=== PATIENT | female | born 1965 | race Caucasian/White ===

== ENCOUNTER → 2018-01-20 17:30 | Outpatient (CLI) | payer BC, SELFPAY ==
--- NOTE | 2018-01-20 17:20 | BI_ITS ---
MAMMOGRAPHY - BILATERAL SCREENING REASON FOR EXAM: Female, 52 years old. Routine annual screening examination. PERTINENT HISTORY: Non-contributory. History of prior bilateral breast reduction surgery. TECHNIQUE: Digital bilateral breast miranda (3D mammographic acquisition) in the CC and MLO projections. 2-D mediolateral oblique (MLO) and craniocaudad (CC) views of both breasts were obtained. CAD: Full Field Digital Mammography with Computer Added Detection was performed. COMPARISON: Comparison is made with prior study dated November 19, 2016 and May 06, 2015. FINDINGS: Breast Composition: There are scattered areas of fibroglandular density. There are no dominant masses or suspicious calcifications. Once again, there is asymmetry of breast tissue where more breast tissue is seen in the left breast as compared to the right side. This is unchanged. No other significant abnormalities are identified. There has been no significant change since the prior study. BI/SCREENING MAMM (CAD), BILAT IMPRESSION: Stable bilateral screening mammogram. Yearly follow-up mammogram recommended. (A) ASSESSMENT CATEGORY: BIRADS Category 2: Benign. A letter regarding these results will be sent to the patient by the facility within 30 days. Approximately 10% of breast cancers are not detected by mammography. A normal mammogram should not delay biopsy of a clinically suspicious abnormality. [id number] Electronically Signed: Jori Berry MD at 10:28 EDT Tel [phone], Service support ,
== END ==
PROVIDERS: Family Provider Internal Medicine; PCP Internal Medicine; Visit Provider Internal Medicine
DX: Z12.31 Encounter for screening mammogram for malignant neoplasm of breast (principal)
CPT/HCPCS: 77063; 77067

== ENCOUNTER → 2019-02-08 | Outpatient (CLI) | payer BC, SELFPAY ==
--- NOTE | 2019-02-07 17:03 | BI_ITS ---
MAMMOGRAPHY - BILATERAL SCREENING REASON FOR EXAM: Female, 53 years old. Routine annual screening examination. PERTINENT HISTORY: Non-contributory. Bilateral breast reduction surgery. TECHNIQUE: Digital bilateral breast tno (3D mammographic acquisition) in the CC and MLO projections. 2-D mediolateral oblique (MLO) and craniocaudad (CC) views of both breasts were obtained. CAD: Full Field Digital Mammography with Computer Added Detection was performed. COMPARISON: Comparison is made with prior study dated January 20, 2018 and November 19, 2016. FINDINGS: Breast Composition: There are scattered areas of fibroglandular density. There are no dominant masses or suspicious calcifications. Once again, stable asymmetry of breast tissue where more breast tissue is seen in the left breast as compared to the right. No other significant abnormalities are identified. There has been no significant change since the prior study. BI/SCREEN MAMM (CAD) W/TON BILAT IMPRESSION: Stable bilateral screening mammogram. Yearly follow-up mammogram recommended. (A) ASSESSMENT CATEGORY: BIRADS Category 2: Benign. A letter regarding these results will be sent to the patient by the facility within 30 days. Approximately 10% of breast cancers are not detected by mammography. A normal mammogram should not delay biopsy of a clinically suspicious abnormality. [id number] Electronically Signed: Jori Berry, at 9:11 EDT , Service support ,
== END | disposition home or self-care (01) ==
PROVIDERS: Family Provider Internal Medicine; PCP Internal Medicine; Referring Provider Internal Medicine; Visit Provider Internal Medicine
DX: Z12.31 Encounter for screening mammogram for malignant neoplasm of breast (principal)
CPT/HCPCS: 77063; 77067

== ENCOUNTER → 2020-02-29 16:06 | Outpatient (CLI) | payer BC, SELFPAY ==
--- NOTE | 2020-02-29 16:08 | BI_ITS ---
MAMMOGRAPHY - BILATERAL SCREENING REASON FOR EXAM: Female, 54 years old. Routine annual screening examination. PERTINENT HISTORY: Non-contributory. TECHNIQUE: Digital bilateral breast ton (3D mammographic acquisition) in the CC and MLO projections. 2-D mediolateral oblique (MLO) and craniocaudad (CC) views of both breasts were obtained. CAD: Full Field Digital Mammography with Computer Added Detection was performed. COMPARISON: Comparison is made with prior study dated February 07, 2019. FINDINGS: Breast Composition: There are scattered areas of fibroglandular density. There are no dominant masses or suspicious calcifications. Once again, there is a stable asymmetry of breast tissue, more breast tissue is seen in the left breast as compared to the right side. No other significant abnormalities are identified. There has been no significant change since the prior study. BI/SCREEN MAMM (CAD) W/TON BILAT IMPRESSION: Stable bilateral screening mammogram. Yearly follow-up mammogram recommended. (A) ASSESSMENT CATEGORY: BIRADS Category 2: Benign. A letter regarding these results will be sent to the patient by the facility within 30 days. Approximately 10% of breast cancers are not detected by mammography. A normal mammogram should not delay biopsy of a clinically suspicious abnormality. [id number] Electronically Signed: Jori Berry, at 8:17 EDT , Service support ,
== END ==
PROVIDERS: PCP Internal Medicine; Referring Provider Internal Medicine; Visit Provider Internal Medicine
DX: Z12.31 Encounter for screening mammogram for malignant neoplasm of breast (principal)
CPT/HCPCS: 77063; 77067

== ENCOUNTER → 2022-01-08 | Outpatient (CLI) | payer BC, SELFPAY ==
--- NOTE | 2022-01-08 15:57 | BI_ITS ---
MAMMOGRAPHY - BILATERAL SCREENING REASON FOR EXAM: Female, 56 years old. Routine annual screening examination. PERTINENT HISTORY: Non-contributory. History of prior bilateral breast reduction surgery. TECHNIQUE: Digital bilateral breast ton (3D mammographic acquisition) in the CC and MLO projections. 2-D mediolateral oblique (MLO) and craniocaudad (CC) views of both breasts were obtained. CAD: Full Field Digital Mammography with Computer Added Detection was performed. COMPARISON: Comparison is made with prior study dated 02/29/2020 and 02/07/2019. FINDINGS: Breast Composition: There are scattered areas of fibroglandular density. There are no dominant masses or suspicious calcifications. Stable asymmetry of breast tissue were more breast tissue is seen in the retroareolar region of the left breast as compared to the right side. No other significant abnormalities are identified. There has been no significant change since the prior study. BI/SCRN MAMM (CAD)W/TON BILAT IMPRESSION: Stable bilateral screening mammogram. Yearly follow-up mammogram recommended. (A) ASSESSMENT CATEGORY: BIRADS Category 2: Benign. A letter regarding these results will be sent to the patient by the facility within 30 days. Approximately 10% of breast cancers are not detected by mammography. A normal mammogram should not delay biopsy of a clinically suspicious abnormality. [id number] Electronically Signed: Jori Berry MD at 8:22 EDT ,
[2022-01-08 16:44] LABS: Microalbumin,Random Urine 6.1 mg/L (NO RANGE EST.)
[2022-01-08 17:52] LABS: Absolute Neutrophil Count 9.6 X10^3/uL (2.0-7.7); Basophil% 0.8 % (0-1); Eosinophil# 0.37 X10^3/uL; Eosinophils% 2.8 % (0-5); Hematocrit 46.5 % (37-47); Lymphocyte % 17.4 % (19-41); Mean Corp Hgb Conc 32.3 g/dL (32-36); Mean Corpuscular Hgb 28.7 pg (27.0-32.0); Mean Corpuscular Volume 89.1 fL (81-99); Mean Platelet Vol. 10.4 fl (6.2-12.0); Monocyte# 0.71 X10^3/uL; Monocyte% 5.4 % (0-10); NRBC Flagged by Analyzer 0 % (0-5); Neutrophil # 9.59 X10^3/uL (2.7-7.7); Neutrophil % 72.5 % (47-70); Platelet Count 275 K/mm3 (150-450); RBC Distribution Width CV 13.2 % (11.6-14.6); Red Blood Count 5.22 M/mm3 (4.2-5.4); White Blood Count 13.2 K/mm3 (4.4-11.0)
[2022-01-08 18:18] LABS: Vitamin D,25 Hydroxy 22.4 ng/mL
[2022-01-08 18:27] LABS: AST(SGOT) 35 U/L (15-37); Alanine Aminotransfer ALT/SGPT 76 U/L (13-56); Albumin, Serum 3.7 g/dL (3.2-5.0); Alkaline Phosphatase 101 U/L (45-117); Anion Gap 10 (5-15); BUN 13 mg/dL (7-18); BUN/Creat Ratio 17.9 RATIO (10-20); Calcium,Total 9.5 mg/dL (8.5-10.1); Chloride 104 mmol/L (98-107); Cholesterol 178 mg/dL (200); Creatinine, Serum 0.72 mg/dL (0.55-1.02); EST Glomerular Filtration Rate 88 mL/min (>60); Est Glom Filt Rate - Afr Amer 106 mL/min (>60); Globulin 3.8 g/dL (2.2-4.2); Glucose 114 mg/dL (74-106); High Density Lipoprotein 53 mg/dL; Potassium 3.9 mmol/L (3.5-5.1); Protein, Total 7.5 g/dL (6.4-8.2); Sodium Level 138 mmol/L (136-145); Thyroid Stim Hormone (TSH) 2.71 uIU/mL (0.358-3.74); Triglycerides 107 mg/dL; Very Low Density Lipoprotein 21 mg/dL (5-40)
== END | disposition home or self-care (01) ==
LOC: OPBI 15:56
PROVIDERS: PCP Internal Medicine; Referring Provider Internal Medicine; Visit Provider Internal Medicine
DX: Z12.31 Encounter for screening mammogram for malignant neoplasm of breast (principal); E11.9 Type 2 diabetes mellitus without complications; E55.9 Vitamin D deficiency, unspecified; E78.5 Hyperlipidemia, unspecified
CPT/HCPCS: 36415; 77063; 77067; 80053; 80061; 82043; 82306; 82570; 84443; 85025

== ENCOUNTER → 2022-12-10 | Outpatient (CLI) | payer BC, SELFPAY ==
--- NOTE | 2022-12-10 15:20 | VDLE_ITS ---
Reason For Study: Calf swelling Procedure LEFT This is a venous duplex using B-mode, color GSV is normal. flow and spectral Doppler. CFV is compressible, spontaneous, phasic, Exam performed in department. competent, and demonstrates normal The study was technically limited. augmentation. The study was technically difficult. FV is compressible, spontaneous, phasic, A preliminary report was called and/or faxed competent and demonstrates normal to Dr. Macedo. augmentation. POP V is compressible, spontaneous, phasic, competent and demonstrates normal augmentation. T/P Trunk is compressible. Calf veins not well visualized due to pt body habitus and edema. VL/Venous Duplex US, Unilateral Interpretation Summary There is no evidence of left lower extremity deep vein thrombosis. Left great s aphenous vein appears patent and compressible segmentally. Technically difficult examination. It is o f note that the calf veins on the left were poorly visualized secondary to body habitus and edema. Ordering Physician: Nancy Macedo Referring Physician: Nancy Macedo Performed By: Linda Thomas RVT
== END | disposition home or self-care (01) ==
LOC: CVS 15:19
PROVIDERS: PCP Internal Medicine; Referring Provider Internal Medicine; Visit Provider Internal Medicine
DX: M79.89 Other specified soft tissue disorders (principal)
CPT/HCPCS: 93971

== ENCOUNTER 2022-12-16 07:44 | Outpatient (RCR) | payer BC, SELFPAY ==
[2022-12-16 08:09] VITALS: BP 175/82; PULSE 86; RESP 16; TEMP 36.3; BMI 59.1
--- NOTE | 2022-12-16 10:03 | HP.PCM_ITS ---
History of Present Illness Date of Service: 12/16/22 Chief Complaint: Follow-up on left lower leg cellulitis and lymphedema History of Wound: 57-year-old white female that is overweight obese. 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 Has developed some cellulitis in the left lower leg which appears to be larger than the right leg. She also is forming some hyperkeratosis probably from using Neosporin ointment on her open wounds. Lymphedema is pretty bad we will start her on wraps this week [facility] Home Medications albuterol sulfate 90 mcg/actuation aerosol inhaler (ProAir HFA) 2 puff inhalation Q4H PRN Wheezing 12/16/22 [History Last Taken Unknown] aspirin 81 mg capsule 81 mg PO DAILY 12/16/22 [History Last Taken Unknown] citalopram 20 mg tablet 20 mg PO DAILY 12/16/22 [History Last Taken Unknown] melatonin 12 mg tablet 10 mg PO QHS PRN Insomnia 12/16/22 [History Last Taken Unknown] naproxen 500 mg tablet 500 mg PO DAILY PAIN 12/16/22 [History Last Taken Unknown] spironolactone 50 mg tablet 50 mg PO DAILY 12/16/22 [History Last Taken Unknown] Allergy/AdvReac Type Severity Reaction Status Date / Time amoxicillin Allergy Rash Verified 08/05/15 11:16 fluoxetine [From Prozac] AdvReac Other Verified 12/16/22 08:36 Social History Smoking Status: Never smoker ROS Constitutional Constitutional: Reports systems reviewed and no addt'l complaints, except as documented Cardiovascular Cardiovascular: Reports systems reviewed and no addt'l complaints, except as documented Respiratory/Chest Respiratory/Chest: Reports systems reviewed and no addt'l complaints, except as documented Gastrointestinal Gastrointestinal: Reports systems reviewed and no addt'l complaints, except as documented Genitourinary Genitourinary: Reports systems reviewed and no addt'l complaints, except as documented Musculoskeletal Musculoskeletal: Reports systems reviewed and no addt'l complaints, except as documented Integumentary Integumentary: Reports wounds and other Details: Left lower leg swelling medial aspect of left ankle looks more venous opened and hyperkeratosis very erythematous. Neurologic Neurologic: Reports systems reviewed and no addt'l complaints, except as documented Psychiatric Psychiatric: Reports systems reviewed and no addt'l complaints, except as documented Endocrine Endocrinology: Reports systems reviewed and no addt'l complaints, except as documented Hematologic/Lymphatic Hematologic/Lymphatic: Reports systems reviewed and no addt'l complaints, except as documented Allergic/Immunologic Allergic/Immunologic: Reports systems reviewed and no addt'l complaints, except as documented Vital Signs Vital Signs Vital Signs: 12/16/22 08:09 Temperature 97.4 F L Temperature Source Temporal Pulse Rate 86 Respiratory Rate 16 Blood Pressure 175/82 H Blood Pressure Mean 113 Blood Pressure Source Monitor Blood Pressure Position Sitting Blood Pressure Location Left Arm Oxygen Delivery Method Room Air Weight Weight: 366 lb Body Mass Index (BMI) 59.1 Physical Exam Const oriented x3 General Appearance: cooperative Exam Limitations: no limitations HEENT normocephalic Eyes PERRL Pupil: PERRL Neck full ROM Resp normal respiratory effort and clear to auscultation bilaterally Effort and Inspection: able to speak in complete sentences Auscultation: clear to auscultation bilaterally Cardio regular rate and regular rhythm Palpation: normal PMI Rate: regular rate Rhythm: regular rhythm GI Auscultation: normoactive bowel sounds Palpation: soft Extremity General Extremity: normal exam except as noted and other findings Other Details: Lymphedema to bilateral lower legs left leg more swollen than right. Open area on left medial aspect of ankle bumpy and uneven edges looks more vascular Skin no rashes or lesions noted Neuro oriented x3 Psych Appearance: grossly normal Speech: normal speech Thought Content: normal thought content Judgement: judgement good Debridement Note Debridement Note Post-Debridement Measurements and Additional Note: Post-Debridement Measurements/Treatment WC - Nurse 1 - General Ulcer Assessment Start: 12/16/22 08:09 Freq: Status: Active Protocol: WC.LOWEXT Activity Type Activity Date Activity User E-sign Co-sign Detail Recorded Client Recorded Date Recorded By Document 12/16/22 08:09 BMF [id number] 12/16/22 08:32 BMF Edit Result 12/16/22 08:09 BMF (1) [id number] 12/16/22 08:41 BMF (1) Pulse Rate (60-100) => 86 Pulse Location => Monitor Blood Pressure (90/60-120/80) => 175/82 H Blood Pressure Mean => 113 12/16/22 08:09 WC - Today's Visit Information Type of service Follow-up Visit (Physician/REHABILITATION SERVICES AIDE ) Arrival Mode Ambulatory Transfer Assistance None Patient Identification Verified (Name & Yes ) Patient Requires Transmission-Based No Precautions Height and Weight Height 5 ft 6 in Weight 366 lb Weight in Pounds 366.0 lbs Body Mass Index (BMI) 59.1 BMI Classification Obese BSA - Patrick 2.59 Vital Signs Temperature (97.8 F-99.1 F) 97.4 F L Temperature Source Temporal Pulse Rate (60-100) 86 Pulse Location Monitor Respiratory Rate (12-18) 16 Respiratory rate source Observation Oxygen Delivery Method Room Air Blood Pressure (90/60-120/80) 175/82 H Blood Pressure Mean 113 Source Monitor Position Sitting Blood Pressure Location Left Arm History Since Last Visit- (Skip if this is Patient's initial visit) Left Footwear Regular Shoe Right Footwear Regular Shoe Pain Scale: 0-10 Numeric Is Patient Pain Free? Yes Lower Extremity Assessment/ Foot Assessment/ Toe Nail Assessment Right -Posterior Tibial Palpable No -Posterior Tibial Doppler Inaudible -Dorsalis Pedis Palpable No -Dorsalis Pedis Doppler Inaudible -Extremity Color Pale -Hair Growth on Legs Yes -Hair Growth on Toes Yes -Temperature of Extremity Cool -Capillary Refill Less than 3 Seconds -Other Deformity No -Prior Foot Ulcer No -Charcot Joint No -Prior Amputation No -Thick No -Discolored No -Deformed No -Improper Length & Hygeine No Left -Lower Extremity Comment (If N/A Above LYMPHATIC LEG/ ) FOOT. DIFFICULT TO ASSESS PULSES -Posterior Tibial Palpable No -Dorsalis Pedis Palpable Yes -Dorsalis Pedis Doppler Multiphasic -Extremity Color Pale -Hair Growth on Legs Yes -Hair Growth on Toes Yes -Temperature of Extremity Cool -Capillary Refill Less than 3 Seconds -Other Deformity No -Prior Foot Ulcer No -Charcot Joint No -Prior Amputation No -Thick No -Discolored No -Deformed No -Improper Length & Hygeine No Neuropathy Assessment Feet - Top Side and Bottom <Entered> (a) Communication Assessment Preferred language [place] Premium Auditor Required No Able to Read Yes Able to Write Yes Communication Tools None Right Hearing Abillity Normal Left Hearing Abillity Normal Visual Assistive Devices None Teaching Assessment Preferences Verbal,Written, Audio/Visual, Demonstration Barriers to Learning None Readiness To Learn Excellent Willingness to Engage in Self Management High Activies Readiness to Engage in Self Management High Activities Anxiety Level Calm Cooperation Cooperative Perception Coherent Interest in Health Problem Asks Questions Education Importance Acknowledges Need Does Patient Smoke tobacco or other No substances Smoking Status Never smoker Is Patient Diabetic Yes Functional Assessment Recent Decline in Ability to Perform Denies Any Declines 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 Cultural/Yarsani Needs that may affect No Treatment Plan Teaching: Wound Center *Welcome to the Wound Center -Person Taught Patient -Teaching Method Discussion -Response to teaching Verbalize understanding Welcome to the Wound Care Center [place] (a) 1 - - 2 - - 3 - - 4 - + 5 - + 6 - + 7 - + SHIV - Nurse 1 - General Ulcer Measurement Start: 12/16/22 08:09 Freq: Status: Active Protocol: Activity Type Activity Date Activity User E-sign Co-sign Detail Recorded Client Recorded Date Recorded By Document 12/16/22 08:09 [facility] [id number] 12/16/22 08:32 [facility] 12/16/22 08:09 Wound Center Nurse 1 #1- L POST LE -Combined with other wound No -Current Size (cm) - Length 14.8 -Current Size (cm) - Width 22.5 -Current Size (cm) - Depth 0.1 -Total Square Cm 333.00 -Date of Last Picture (Recall this 12/16/22 field) -Photo Taken Yes -Epithelialization None Present -Tunneling No -Undermining/Tunneling No -Circular Undermining No -Exudate Amt Large -Exudate Type Serosanguineous -Wound Margin Distinct, Outline Attached -Granulation Amt Medium (34-66%) -Granulation Quality Red -Slough/Fibrin Yes -Necrosis Amt Medium (34-66%) -Necrotic Tissue Type Adherent Slough -Texture (Roberta-wound Skin Appearance) Assessed, Scarring -Moisture (Roberta-wound Skin Appearance) Assessed -Color (Roberta-wound Skin Appearance) Assessed -Temperature (Roberta-wound Skin No Abnormality Appearance) (Pt Warm) -Tenderness on Palpation (Roberta-wound No Skin Appearance) -Ulcer Cleansing Soap and Water -Foul Odor after Cleansing No -Anesthetic Used 4% Lidocaine Solution Lower Limb Edema Present Yes Right Calf (cm) 62.2 Right Ankle (cm) 37.8 Left Calf (cm) 69 Left Ankle (cm) 40.2 - Nurse 2 - General Ulcer CM Notes Start: 12/16/22 08:09 Freq: Status: Active Protocol: Activity Type Activity Date Activity User E-sign Co-sign Detail Recorded Client Recorded Date Recorded By Document 12/16/22 08:52 MW [id number] 12/16/22 08:57 MW 12/16/22 08:52 Wound Center Nurse 2 #1- L POST LE -Time 08:53 -Correct Patient Yes -Correct Side, Site, Position Yes -Correct Procedure Yes -Procedure Performed Yes -Type of Procedure Debridement -Clinical Debridement Subcutaneous -Tissue Removed Subcutaneous -Post Debridement (cm) - Length 14.8 -Post Debridement (cm) - Width 22.5 -Post Debridement (cm) - Depth 0.1 -Total Square (Post) (cm) 333.00 -Area of Debridement (cm) - Length 14.8 -Area of Debridement (cm) - Width 22.5 -Total Square (Area) (cm) 333.00 -Tunneling No -Undermining/Tunneling No -Circular Undermining No -Wound/Ulcer Outcome Not Healed -Ulcer Cleansing Rinsed/ Irrigated with Saline -Foul Odor after Cleansing No -Bioengineered Tissue No -Bleeding Controlled with Pressure -Treatment Response Procedure Tolerated Well -Offloading No -Debridement - Subq, 1st 20sq cm Yes Pain Scale: 0-10 Numeric Is Patient Pain Free? Yes - Nurse 3 - General Ulcer D/C NN Start: 12/16/22 08:09 Freq: Status: Active Protocol: Activity Type Activity Date Activity User E-sign Co-sign Detail Recorded Client Recorded Date Recorded By Document 12/16/22 09:23 [facility] [id number] 12/16/22 09:24 [facility] 12/16/22 09:23 Wound Care Center Nurse 3 #1- L POST LE -Ulcer Cleansing Soap and Water -Foul Odor after Cleansing No -Primary Dressing Applied NonAdherent Contact Layer -Other Dressing XEROFORM, ADAPTIC -Primary Dressing Covered/Secured with Dry Gauze & Roll Gauze, Secured with Tape -Other Covering ABD PADS BLE -Compression Wrap Vicente Wrap Treatment Response Procedure Tolerated Well Pain Scale: 0-10 Numeric Is Patient Pain Free? Yes - Visit Discharge Discharge Condition Stable Ambulatory Status Ambulatory Transportation Private Auto Assessment/Plan Assessment/Plan (1) Lymphedema: CODE(S): I89.0 - Lymphedema, not elsewhere classified (2) Peripheral vascular disease: CODE(S): I73.9 - Peripheral vascular disease, unspecified (3) Peripheral vascular disease of lower extremity with ulceration: CODE(S): I73.9 - Peripheral vascular disease, unspecified; L97.909 - Non- pressure chronic ulcer of unspecified part of unspecified lower leg with unspecified severity PLAN: Wash left lower leg with antibacterial soap pat dry Apply Xeroform dressing with Adaptic over top then Mathew Apply a 4 inch Vicente to foot to ankle and then a 6 inch from ankle to knee. Every day may do both legs Follow-up in 1 week
== END 2022-12-20 23:59 | disposition home or self-care (01) ==
LOC: WC 07:44
PROVIDERS: PCP Internal Medicine; Referring Provider Internal Medicine; Visit Provider Nurse Practitioner
DX: L03.116 Cellulitis of left lower limb (principal); L97.909 Non-pressure chronic ulcer of unspecified part of unspecified lower leg with unspecified severity; I73.9 Peripheral vascular disease, unspecified; Z68.43 Body mass index [BMI] 50.0-59.9, adult; I89.0 Lymphedema, not elsewhere classified; E66.9 Obesity, unspecified; Z79.82 Long term (current) use of aspirin; Z79.899 Other long term (current) drug therapy
CPT/HCPCS: 11042; 11045; 87070; 87075; 87077; 87186; 87205; 99203; G0463

== ENCOUNTER 2023-01-20 08:00 | Outpatient (RCR) | payer BC, SELFPAY ==
[2022-12-21 00:53] VITALS: BP 175/82; PULSE 86; RESP 16; TEMP 36.3; BMI 59.1
[2022-12-23 08:26] VITALS: BP 188/83; PULSE 89; RESP 18; TEMP 36.1; BMI 59.1
--- NOTE | 2022-12-23 09:38 | PCM.WC.PN ---
History of Present Illness Date of Service: 12/23/22 Chief Complaint: Follow-up on left lower leg cellulitis and lymphedema History of Wound: 57-year-old white female that is overweight obese. 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 Has developed some cellulitis in the left lower leg which appears to be larger than the right leg. She also is forming some hyperkeratosis probably from using Neosporin ointment on her open wounds. Lymphedema is pretty bad we will start her on wraps this week Progress of Wound: Area is much smaller she is tolerating the Vicente wraps. Patient states her leg is going down. We will offer her pumps for lymphedema that she can start applying during the day twice a day for 30 minutes. The posterior leg areas are smaller she still has some raised skin and she has not started her new antibiotic yet but will start the Cipro twice a day. Subjective Subjective Patient states she is having difficulty getting the Vicente wrap sign she might need to get a family member in there to help her. Otherwise she is pleased with the outcome so far Objective Data Objective Data So measurements of the wounds are smaller her circumferences less than it was last week wearing Vicente wraps. Vital Signs: Vital Signs Temp Pulse Resp BP 97 F L 89 18 188/83 H 12/23/22 08:26 12/23/22 08:26 12/23/22 08:26 12/23/22 08:26 Weight: 366 lb Body Mass Index (BMI) 59.1 Lab / Micro Data Attestation: I reviewed the patient's lab results. Physical Exam Const oriented x3 General Appearance: cooperative Exam Limitations: no limitations HEENT normocephalic Eyes PERRL Pupil: PERRL Neck full ROM Resp normal respiratory effort and clear to auscultation bilaterally Effort and Inspection: able to speak in complete sentences Auscultation: clear to auscultation bilaterally Cardio regular rate and regular rhythm Palpation: normal PMI Rate: regular rate Rhythm: regular rhythm GI Auscultation: normoactive bowel sounds Palpation: soft Extremity General Extremity: normal exam except as noted and other findings Other Details: Lymphedema to bilateral lower legs left leg more swollen than right. Open area on left medial aspect of ankle bumpy and uneven edges looks more vascular Skin no rashes or lesions noted Neuro oriented x3 Psych Appearance: grossly normal Speech: normal speech Thought Content: normal thought content Judgement: judgement good Debridement Note Debridement Note Wound debrided: Left lower leg posterior Type of Debridement: Excisional debridement Anesthesia Used: 5% Lidocaine Gel Depth: Down to and including healthy tissue and in the subcutaneous layer Percentage of wound debrided: 100 Instrument Used: 5mm curette Tissue Removed: Fibrin and some slough Severity: Fat Layer Exposed Amount of bleeding with debridement: Mild Bleeding Controlled with: Compression and gauze Patient tolerated procedure: Patient tolerated procedure well Post-Debridement Measurements and Additional Note: Post-Debridement Measurements/Treatment - Nurse 1 - General Ulcer Assessment Start: 12/23/22 08:26 Freq: Status: Active Protocol: KACI Activity Type Activity Date Activity User E-sign Co-sign Detail Recorded Client Recorded Date Recorded By Document 12/23/22 08:26 EMMIE [id number] 12/23/22 08:28 EMMIE 12/23/22 08:26 WC - Today's Visit Information Type of service 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 ) Arrival Mode Ambulatory Transfer Assistance None Patient Identification Verified (Name & Yes ) Patient Requires Transmission-Based No Precautions Height and Weight Body Mass Index (BMI) 59.1 BMI Classification Obese Vital Signs Temperature (97.8 F-99.1 F) 97 F L Temperature Source Temporal Pulse Rate (60-100) 89 Pulse Location Monitor Respiratory Rate (12-18) 18 Respiratory rate source Observation Blood Pressure (90/60-120/80) 188/83 H Blood Pressure Mean (mm Hg) 118 Position Semi-Fowlers Blood Pressure Location Left Arm History Since Last Visit- (Skip if this is Patient's initial visit) Have you changed medications since your No last visit? Any new allergies or adverse reactions No Had a fall/change in ADL's that may No increase risk of falls Signs or symptoms of abuse and/or No neglect since last visit Have you been in the hospital since your No last visit? Has dressing in place as prescribed Yes Has compression in place as prescribed Yes Has offloadiing in place as prescribed No Experienced any changes in pain level or No management Pain Scale: 0-10 Numeric Is Patient Pain Free? Yes SHIV Melton Nurse 1 - General Ulcer Measurement Start: 12/23/22 08:26 Freq: Status: Active Protocol: Activity Type Activity Date Activity User E-sign Co-sign Detail Recorded Client Recorded Date Recorded By Document 12/23/22 08:26 RB [id number] 12/23/22 08:28 RB 12/23/22 08:26 Wound Center Nurse 1 #1- L POST LE -Combined with other wound No -Current Size (cm) - Length 11 -Current Size (cm) - Width 3.7 -Current Size (cm) - Depth 0.1 -Total Square Cm 40.7 -Tunneling No -Undermining/Tunneling No -Circular Undermining No -Granulation Amt Medium (34-66%) -Granulation Quality [place] -Slough/Fibrin Yes -Necrosis Amt Medium (34-66%) -Necrotic Tissue Type Adherent Slough -Structure Exposed N/A -Texture (Roberta-wound Skin Appearance) Assessed, Excoriation, Localized Edema -Moisture (Roberta-wound Skin Appearance) Assessed -Color (Roberta-wound Skin Appearance) Assessed -Temperature (Roberta-wound Skin No Abnormality Appearance) (Pt Warm) -Tenderness on Palpation (Roberta-wound No Skin Appearance) -Ulcer Cleansing Wound Cleanser -Foul Odor after Cleansing No -Anesthetic Used 5% Lidocaine Gel Lower Limb Edema Present Yes Left Calf (cm) 68 Left Ankle (cm) 41 WC - Nurse 2 - General Ulcer CM Notes Start: 12/23/22 08:26 Freq: Status: Active Protocol: Activity Type Activity Date Activity User E-sign Co-sign Detail Recorded Client Recorded Date Recorded By Document 12/23/22 08:39 MW [id number] 12/23/22 08:44 MW 12/23/22 08:39 Wound Center Nurse 2 #1- L POST LE -Time 08:40 -Correct Patient Yes -Correct Side, Site, Position Yes -Correct Procedure Yes -Procedure Performed Yes -Type of Procedure Debridement -Clinical Debridement Subcutaneous -Tissue Removed Subcutaneous -Post Debridement (cm) - Length 12.0 -Post Debridement (cm) - Width 15.0 -Post Debridement (cm) - Depth 0.1 -Total Square (Post) (cm) 180.00 -Area of Debridement (cm) - Length 12.0 -Area of Debridement (cm) - Width 15.0 -Total Square (Area) (cm) 180.00 -Tunneling No -Undermining/Tunneling No -Circular Undermining No -Wound/Ulcer Outcome Not Healed -Ulcer Cleansing Rinsed/ Irrigated with Saline -Foul Odor after Cleansing No -Bioengineered Tissue No -Bleeding Controlled with Pressure -Treatment Response Procedure Tolerated Well -Offloading No -Debridement - Subq, 1st 20sq cm Yes -Debridement, SubQ, ea addt'l 20sq cm 9 or part thereof Pain Scale: 0-10 Numeric Is Patient Pain Free? Yes - Nurse 3 - General Ulcer D/C NN Start: 12/23/22 08:26 Freq: Status: Active Protocol: Activity Type Activity Date Activity User E-sign Co-sign Detail Recorded Client Recorded Date Recorded By Document 12/23/22 08:51 [facility] [id number] 12/23/22 08:52 [facility] 12/23/22 08:51 Wound Care Center Nurse 3 #1- L POST LE -Ulcer Cleansing Rinsed/ Irrigated with Saline -Foul Odor after Cleansing No -Primary Dressing Applied NonAdherent Contact Layer -Other Dressing abd -Primary Dressing Covered/Secured with Dry Gauze & Roll Gauze, Secured with Tape -Other Covering drsg per rb rn ble -Compression Wrap Vicente Wrap Treatment Response Procedure Tolerated Well Pain Scale: 0-10 Numeric Is Patient Pain Free? Yes WC - Visit Discharge Discharge Condition Stable Ambulatory Status Ambulatory Transportation Private Auto Assessment/Plan Assessment/Plan (1) Lymphedema: CODE(S): I89.0 - Lymphedema, not elsewhere classified (2) Peripheral vascular disease: CODE(S): I73.9 - Peripheral vascular disease, unspecified (3) Peripheral vascular disease of lower extremity with ulceration: CODE(S): I73.9 - Peripheral vascular disease, unspecified; L97.909 - Non-pressure chronic ulcer of unspecified part of unspecified lower leg with unspecified severity PLAN: Wash left lower leg with antibacterial soap pat dry Apply Xeroform dressing with Adaptic over top then Mathew Apply a 4 inch Vicente to foot to ankle and then a 6 inch from ankle to knee. Every day may do both legs Will apply for lymphedema pumps Follow-up in 1 week
[2022-12-30 08:13] VITALS: BP 179/93; PULSE 85; RESP 16; TEMP 36.6; BMI 59.1
--- NOTE | 2022-12-30 09:32 | PCM.WC.PN ---
History of Present Illness Date of Service: 12/30/22 Chief Complaint: Follow-up on left lower leg cellulitis and lymphedema History of Wound: 57-year-old white female that is overweight obese. 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 Has developed some cellulitis in the left lower leg which appears to be larger than the right leg. She also is forming some hyperkeratosis probably from using Neosporin ointment on her open wounds. Lymphedema is pretty bad we will start her on wraps this week Progress of Wound: Area is much smaller she is tolerating the Vicente wraps. Patient states her leg is going down. We will offer her pumps for lymphedema that she can start applying during the day twice a day for 30 minutes. The posterior leg areas are smaller she still has some raised skin and she has not started her new antibiotic yet but will start the Cipro twice a day. Subjective Subjective Patient has to get back to the distributor about her pumps they did not contact her though. Patient is pleased with outcomes and she feels like she is if they are getting smaller. Patient needs FMLA papers filled out because of her absenteeism. Objective Data Objective Data FMLA papers were signed. Patient is still on antibiotic therapy. Still has open areas on the back of her left lower leg much smaller. No sign of circumferential. Patient's legs are still very edematous anxious for her to get on the pumps with the Vicente wrap son. Vital Signs: Vital Signs Temp Pulse Resp BP O2 Del Method 98 F 85 16 179/93 H Room Air 12/30/22 08:13 12/30/22 08:13 12/30/22 08:13 12/30/22 08:13 12/30/22 08:13 Oxygen Delivery Method Room Air Weight: 366 lb Body Mass Index (BMI) 59.1 Lab / Micro Data Attestation: I reviewed the patient's lab results. Physical Exam Const oriented x3 General Appearance: cooperative Exam Limitations: no limitations HEENT normocephalic Eyes PERRL Pupil: PERRL Neck full ROM Resp normal respiratory effort and clear to auscultation bilaterally Effort and Inspection: able to speak in complete sentences Auscultation: clear to auscultation bilaterally Cardio regular rate and regular rhythm Palpation: normal PMI Rate: regular rate Rhythm: regular rhythm GI Auscultation: normoactive bowel sounds Palpation: soft Extremity General Extremity: normal exam except as noted and other findings Other Details: Lymphedema to bilateral lower legs left leg more swollen than right. Open area on left medial aspect of ankle bumpy and uneven edges looks more vascular Skin no rashes or lesions noted Neuro oriented x3 Psych Appearance: grossly normal Speech: normal speech Thought Content: normal thought content Judgement: judgement good Debridement Note Debridement Note Wound debrided: Left lower leg cellulitis and open wounds Type of Debridement: Excisional debridement Anesthesia Used: 5% Lidocaine Gel Depth: Down to and including healthy tissue Percentage of wound debrided: 100 Instrument Used: 5mm curette Tissue Removed: Fibrin and devitalized tissue Severity: Limited To Skin Breakdown Amount of bleeding with debridement: None Bleeding Controlled with: Compression and gauze Patient tolerated procedure: Patient tolerated procedure well Post-Debridement Measurements and Additional Note: Post-Debridement Measurements/Treatment - Nurse 1 - General Ulcer Assessment Start: 12/23/22 08:26 Freq: Status: Active Protocol: KACI Activity Type Activity Date Activity User E-sign Co-sign Detail Recorded Client Recorded Date Recorded By Document 12/23/22 08:26 [id number] 12/23/22 08:28 RB Document 12/30/22 08:13 [facility] [id number] 12/30/22 08:22 [facility] 12/23/22 12/30/22 08:26 08:13 - Today's Visit Information Type of service Follow-up Visit Follow-up 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 (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 ) ) Arrival Mode Ambulatory Ambulatory Transfer Assistance None None Patient Identification Verified (Name & Yes Yes ) Patient Requires Transmission-Based No No Precautions Height and Weight Body Mass Index (BMI) 59.1 59.1 BMI Classification Obese Obese Vital Signs Temperature (97.8 F-99.1 F) 97 F L 98 F Temperature Source Temporal Temporal Pulse Rate (60-100) 89 85 Pulse Location Monitor Monitor Respiratory Rate (12-18) 18 16 Respiratory rate source Observation Observation Oxygen Delivery Method Room Air Blood Pressure (90/60-120/80) 188/83 H 179/93 H Blood Pressure Mean (mm Hg) 118 121 Source Monitor Position Semi-Fowlers Sitting Blood Pressure Location Left Arm Left Forearm History Since Last Visit- (Skip if this is Patient's initial visit) Have you changed medications since your No No last visit? Any new allergies or adverse reactions No No Had a fall/change in ADL's that may No increase risk of falls Signs or symptoms of abuse and/or No No neglect since last visit Have you been in the hospital since your No No last visit? Has dressing in place as prescribed Yes No Has compression in place as prescribed Yes No Has offloadiing in place as prescribed No N/A Experienced any changes in pain level or No No management Left Footwear Regular Shoe Right Footwear Regular Shoe Pain Scale: 0-10 Numeric Is Patient Pain Free? Yes Yes WC - Nurse 1 - General Ulcer Measurement Start: 12/23/22 08:26 Freq: Status: Active Protocol: Activity Type Activity Date Activity User E-sign Co-sign Detail Recorded Client Recorded Date Recorded By Document 12/23/22 08:26 RB [id number] 12/23/22 08:28 RB Document 12/30/22 08:13 [facility] [id number] 12/30/22 08:22 BM 12/23/22 12/30/22 08:26 08:13 Wound Center Nurse 1 #1- L POST LE -Combined with other wound No No -Current Size (cm) - Length 11 13 -Current Size (cm) - Width 3.7 15.3 -Current Size (cm) - Depth 0.1 0.1 -Total Square Cm 40.7 198.9 -Date of Last Picture (Recall this 12/30/22 field) -Photo Taken Yes -Epithelialization None Present -Tunneling No No -Undermining/Tunneling No No -Circular Undermining No No -Exudate Amt Large -Exudate Type Serous -Wound Margin Distinct, Outline Attached -Granulation Amt Medium (34-66%) Large (67-100%) -Granulation Quality [place] Red -Slough/Fibrin Yes Yes -Necrosis Amt Medium (34-66%) Small (1-33%) -Necrotic Tissue Type Adherent Slough Adherent Slough -Structure Exposed N/A -Texture (Roberta-wound Skin Appearance) Assessed, Assessed, Excoriation, Scarring Localized Edema -Moisture (Roberta-wound Skin Appearance) Assessed Assessed,Dry/ Scaly -Color (Roberta-wound Skin Appearance) Assessed Assessed -Temperature (Roberta-wound Skin No Abnormality No Abnormality Appearance) (Pt Warm) (Pt Warm) -Tenderness on Palpation (Roberta-wound No No Skin Appearance) -Ulcer Cleansing Wound Cleanser Soap and Water -Foul Odor after Cleansing No No -Anesthetic Used 5% Lidocaine 4% Lidocaine Gel Solution Lower Limb Edema Present Yes Yes Left Calf (cm) 68 70.3 Left Ankle (cm) 41 40.5 WC - Nurse 2 - General Ulcer CM Notes Start: 12/23/22 08:26 Freq: Status: Active Protocol: Activity Type Activity Date Activity User E-sign Co-sign Detail Recorded Client Recorded Date Recorded By Document 12/23/22 08:39 MW [id number] 12/23/22 08:44 MW Document 12/30/22 08:33 MW [id number] 12/30/22 08:42 MW Edit Result 12/30/22 08:33 MW (1) [id number] 12/30/22 08:48 MW (1) #1- L POST LE - Debridement, SubQ, ea addt'l 20sq cm => 9 or part thereof 12/23/22 12/30/22 08:39 08:33 Wound Center Nurse 2 #1- L POST LE -Time 08:40 08:33 -Correct Patient Yes Yes -Correct Side, Site, Position Yes Yes -Correct Procedure Yes Yes -Procedure Performed Yes Yes -Type of Procedure Debridement Debridement -Clinical Debridement Subcutaneous Subcutaneous -Tissue Removed Subcutaneous Subcutaneous -Post Debridement (cm) - Length 12.0 11.5 -Post Debridement (cm) - Width 15.0 17.0 -Post Debridement (cm) - Depth 0.1 0.1 -Total Square (Post) (cm) 180.00 195.50 -Area of Debridement (cm) - Length 12.0 11.5 -Area of Debridement (cm) - Width 15.0 17.0 -Total Square (Area) (cm) 180.00 195.50 -Tunneling No No -Undermining/Tunneling No No -Circular Undermining No No -Wound/Ulcer Outcome Not Healed Not Healed -Ulcer Cleansing Rinsed/ Rinsed/ Irrigated with Irrigated with Saline Saline -Foul Odor after Cleansing No No -Bioengineered Tissue No No -Bleeding Controlled with Pressure Pressure -Treatment Response Procedure Procedure Tolerated Well Tolerated Well -Offloading No No -Debridement - Subq, 1st 20sq cm Yes Yes -Debridement, SubQ, ea addt'l 20sq cm 9 9 or part thereof Pain Scale: 0-10 Numeric Is Patient Pain Free? Yes Yes - Nurse 3 - General Ulcer D/C NN Start: 12/23/22 08:26 Freq: Status: Active Protocol: Activity Type Activity Date Activity User E-sign Co-sign Detail Recorded Client Recorded Date Recorded By Document 12/23/22 08:51 [facility] [id number] 12/23/22 08:52 [facility] Document 12/30/22 08:57 [facility] [id number] 12/30/22 08:58 [facility] 12/23/22 12/30/22 08:51 08:57 Wound Care Center Nurse 3 #1- L POST LE -Ulcer Cleansing Rinsed/ Rinsed/ Irrigated with Irrigated with Saline Saline -Foul Odor after Cleansing No No -Primary Dressing Applied NonAdherent NonAdherent Contact Layer Contact Layer -Other Dressing abd abd -Primary Dressing Covered/Secured with Dry Gauze & Dry Gauze & Roll Gauze, Roll Gauze, Secured with Secured with Tape Tape -Other Covering drsg per rb rn ble -Compression Wrap Vicente Wrap Vicente Wrap Treatment Response Procedure Procedure Tolerated Well Tolerated Well Pain Scale: 0-10 Numeric Is Patient Pain Free? Yes Yes - Visit Discharge Discharge Condition Stable Stable Ambulatory Status Ambulatory Ambulatory Transportation Private Auto Private Auto Assessment/Plan Assessment/Plan (1) Lymphedema: CODE(S): I89.0 - Lymphedema, not elsewhere classified (2) Peripheral vascular disease: CODE(S): I73.9 - Peripheral vascular disease, unspecified (3) Peripheral vascular disease of lower extremity with ulceration: CODE(S): I73.9 - Peripheral vascular disease, unspecified; L97.909 - Non-pressure chronic ulcer of unspecified part of unspecified lower leg with unspecified severity PLAN: Wash left lower leg with antibacterial soap pat dry Apply Xeroform dressing with Adaptic over top then Mathew Apply a 4 inch Vicente to foot to ankle and then a 6 inch from ankle to knee. Every day may do both legs call company back for lymphedema pumps Follow-up in 1 week FMLA signed
[2023-01-06 08:20] VITALS: BP 180/87; PULSE 88; RESP 18; TEMP 36.1; BMI 59.1
--- NOTE | 2023-01-06 08:54 | PN.PCM_ITS ---
History of Present Illness Date of Service: 01/06/23 Chief Complaint: Follow-up on left lower leg cellulitis and lymphedema History of Wound: 57-year-old white female that is overweight obese. 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 Has developed some cellulitis in the left lower leg which appears to be larger than the right leg. She also is forming some hyperkeratosis probably from using Neosporin ointment on her open wounds. Lymphedema is pretty bad we will start her on wraps this week Progress of Wound: Area is much smaller she is tolerating the Vicente wraps. Patient states her leg is going down. We will offer her pumps for lymphedema that she can start applying during the day twice a day for 30 minutes. The posterior leg areas are smaller she still has some raised skin and she has not started her new antibiotic yet but will start the Cipro twice a day. Subjective Subjective pumps are still waiting to be approved patient having hard time with wrapping the foot and the legs , wonders when she can wear compression stockings At this point she need the compression of the legs done Objective Data Objective Data The wound are much small and will probably be finished in the next weeks . Vital Signs: Vital Signs Temp Pulse Resp BP O2 Del Method 97 F L 88 18 180/87 H Room Air 01/06/23 08:20 01/06/23 08:20 01/06/23 08:20 01/06/23 08:20 12/30/22 08:13 Oxygen Delivery Method Room Air Weight: 366 lb Body Mass Index (BMI) 59.1 Lab / Micro Data Attestation: I reviewed the patient's lab results. Physical Exam Const oriented x3 General Appearance: cooperative Exam Limitations: no limitations HEENT normocephalic Eyes PERRL Pupil: PERRL Neck full ROM Resp normal respiratory effort and clear to auscultation bilaterally Effort and Inspection: able to speak in complete sentences Auscultation: clear to auscultation bilaterally Cardio regular rate and regular rhythm Palpation: normal PMI Rate: regular rate Rhythm: regular rhythm GI Auscultation: normoactive bowel sounds Palpation: soft Extremity General Extremity: normal exam except as noted and other findings Other Details: Lymphedema to bilateral lower legs left leg more swollen than right. Open area on left medial aspect of ankle bumpy and uneven edges looks more vascular Skin no rashes or lesions noted Neuro oriented x3 Psych Appearance: grossly normal Speech: normal speech Thought Content: normal thought content Judgement: judgement good Debridement Note Debridement Note Wound debrided: L lower leg PVD with ulcer Type of Debridement: Excisional debridement Anesthesia Used: 5% Lidocaine Gel Depth: in the subcutaneous layer Percentage of wound debrided: 100 Instrument Used: 5mm curette Tissue Removed: slough and fibrin Severity: Limited To Skin Breakdown Amount of bleeding with debridement: None Bleeding Controlled with: Pressure Patient tolerated procedure: Patient tolerated procedure well Post-Debridement Measurements and Additional Note: Post-Debridement Measurements/Treatment - Nurse 1 - General Ulcer Assessment Start: 12/23/22 08:26 Freq: Status: Active Protocol: KACI Activity Type Activity Date Activity User E-sign Co-sign Detail Recorded Client Recorded Date Recorded By Document 12/23/22 08:26 RB [id number] 12/23/22 08:28 RB Document 12/30/22 08:13 [facility] [id number] 12/30/22 08:22 [facility] Document 01/06/23 08:20 RB [id number] 01/06/23 08:29 RB 12/23/22 12/30/22 01/06/23 08:26 08:13 08:20 - Today's Visit Information Type of service Follow-up Visit Follow-up Visit Follow-up Visit (Physician/BUSINESS DEVELOPMENT PROFESSIONAL (Physician/BUSINESS DEVELOPMENT PROFESSIONAL (Physician/BUSINESS DEVELOPMENT PROFESSIONAL ) ) ) Arrival Mode Ambulatory Ambulatory Ambulatory Transfer Assistance None None None Patient Identification Verified (Name & Yes Yes Yes ) Patient Requires Transmission-Based No No No Precautions Height and Weight Body Mass Index (BMI) 59.1 59.1 59.1 BMI Classification Obese Obese Obese Vital Signs Temperature (97.8 F-99.1 F) 97 F L 98 F 97 F L Temperature Source Temporal Temporal Temporal Pulse Rate (60-100) 89 85 88 Pulse Location Monitor Monitor Monitor Respiratory Rate (12-18) 18 16 18 Respiratory rate source Observation Observation Observation Oxygen Delivery Method Room Air Blood Pressure (90/60-120/80) 188/83 H 179/93 H 180/87 H Blood Pressure Mean (mm Hg) 118 121 118 Source Monitor Monitor Position Semi-Fowlers Sitting Semi-Fowlers Blood Pressure Location Left Arm Left Forearm Left Arm History Since Last Visit- (Skip if this is Patient's initial visit) Have you changed medications since your No No No last visit? Any new allergies or adverse reactions No No No Had a fall/change in ADL's that may No No increase risk of falls Signs or symptoms of abuse and/or No No No neglect since last visit Have you been in the hospital since your No No No last visit? Has dressing in place as prescribed Yes No Yes Has compression in place as prescribed Yes No No Has offloadiing in place as prescribed No N/A No Experienced any changes in pain level or No No No management Left Footwear Regular Shoe Right Footwear Regular Shoe Pain Scale: 0-10 Numeric Is Patient Pain Free? Yes Yes Yes WC - Nurse 1 - General Ulcer Measurement Start: 12/23/22 08:26 Freq: Status: Active Protocol: Activity Type Activity Date Activity User E-sign Co-sign Detail Recorded Client Recorded Date Recorded By Document 12/23/22 08:26 RB [id number] 12/23/22 08:28 RB Document 12/30/22 08:13 BMF [id number] 12/30/22 08:22 BMF Document 01/06/23 08:20 RB [id number] 01/06/23 08:29 RB Edit Result 01/06/23 08:20 RB (1) [id number] 01/06/23 08:30 RB (1) Left Ankle (cm) 46 => 40 12/23/22 12/30/22 01/06/23 08:26 08:13 08:20 Wound Center Nurse 1 #1- L POST LE -Combined with other wound No No No -Current Size (cm) - Length 11 13 5 -Current Size (cm) - Width 3.7 15.3 9 -Current Size (cm) - Depth 0.1 0.1 0.1 -Total Square Cm 40.7 198.9 45 -Date of Last Picture (Recall this 12/30/22 field) -Photo Taken Yes Yes -Epithelialization None Present -Tunneling No No No -Undermining/Tunneling No No No -Circular Undermining No No No -Exudate Amt Large Large -Exudate Type Serous Serosanguineous -Wound Margin Distinct, Distinct, Outline Outline Attached Attached -Granulation Amt Medium (34-66%) Large (67-100%) Medium (34-66%) -Granulation Quality [place] -Slough/Fibrin Yes Yes Yes -Necrosis Amt Medium (34-66%) Small (1-33%) Medium (34-66%) -Necrotic Tissue Type Adherent Slough Adherent Slough Adherent Slough -Structure Exposed N/A N/A -Texture (Roberta-wound Skin Appearance) Assessed, Assessed, Assessed, Excoriation, Scarring Scarring Localized Edema -Moisture (Roberta-wound Skin Appearance) Assessed Assessed,Dry/ Assessed Scaly -Color (Roberta-wound Skin Appearance) Assessed Assessed Assessed -Temperature (Roberta-wound Skin No Abnormality No Abnormality No Abnormality Appearance) (Pt Warm) (Pt Warm) (Pt Warm) -Tenderness on Palpation (Roberta-wound No No No Skin Appearance) -Ulcer Cleansing Wound Cleanser Soap and Water Wound Cleanser -Foul Odor after Cleansing No No No -Anesthetic Used 5% Lidocaine 4% Lidocaine 5% Lidocaine Gel Solution Gel Lower Limb Edema Present Yes Yes Yes Left Calf (cm) 68 70.3 67.5 Left Ankle (cm) 41 40.5 40 WC - Nurse 2 - General Ulcer CM Notes Start: 12/23/22 08:26 Freq: Status: Active Protocol: Activity Type Activity Date Activity User E-sign Co-sign Detail Recorded Client Recorded Date Recorded By Document 12/23/22 08:39 MW [id number] 12/23/22 08:44 MW Document 12/30/22 08:33 MW [id number] 12/30/22 08:42 MW Edit Result 12/30/22 08:33 MW (1) [id number] 12/30/22 08:48 MW Document 01/06/23 08:37 PL [id number] 01/06/23 08:38 PL (1) #1- L POST LE - Debridement, SubQ, ea addt'l 20sq cm => 9 or part thereof 12/23/22 12/30/22 01/06/23 08:39 08:33 08:37 Wound Center Nurse 2 #1- L POST LE -Time 08:40 08:33 08:30 -Correct Patient Yes Yes Yes -Correct Side, Site, Position Yes Yes Yes -Correct Procedure Yes Yes Yes -Procedure Performed Yes Yes Yes -Type of Procedure Debridement Debridement Debridement -Clinical Debridement Subcutaneous Subcutaneous Subcutaneous -Tissue Removed Subcutaneous Subcutaneous Subcutaneous -Post Debridement (cm) - Length 12.0 11.5 3.0 -Post Debridement (cm) - Width 15.0 17.0 6.0 -Post Debridement (cm) - Depth 0.1 0.1 0.1 -Total Square (Post) (cm) 180.00 195.50 18.00 -Area of Debridement (cm) - Length 12.0 11.5 3.0 -Area of Debridement (cm) - Width 15.0 17.0 6.0 -Total Square (Area) (cm) 180.00 195.50 18.00 -Tunneling No No No -Undermining/Tunneling No No No -Circular Undermining No No No -Wound/Ulcer Outcome Not Healed Not Healed Not Healed -Ulcer Cleansing Rinsed/ Rinsed/ Rinsed/ Irrigated with Irrigated with Irrigated with Saline Saline Saline -Foul Odor after Cleansing No No No -Bioengineered Tissue No No No -Bleeding Controlled with Pressure Pressure Pressure -Treatment Response Procedure Procedure Procedure Tolerated Well Tolerated Well Tolerated Well -Offloading No No -Debridement - Subq, 1st 20sq cm Yes Yes Yes -Debridement, SubQ, ea addt'l 20sq cm 9 9 or part thereof Pain Scale: 0-10 Numeric Is Patient Pain Free? Yes Yes Yes WC - Nurse 3 - General Ulcer D/C NN Start: 12/23/22 08:26 Freq: Status: Active Protocol: Activity Type Activity Date Activity User E-sign Co-sign Detail Recorded Client Recorded Date Recorded By Document 12/23/22 08:51 [facility] [id number] 12/23/22 08:52 [facility] Document 12/30/22 08:57 [facility] [id number] 12/30/22 08:58 [facility] Document 01/06/23 08:47 [facility] [id number] 01/06/23 08:48 [facility] 12/23/22 12/30/22 01/06/23 08:51 08:57 08:47 Wound Care Center Nurse 3 #1- L POST LE -Ulcer Cleansing Rinsed/ Rinsed/ Rinsed/ Irrigated with Irrigated with Irrigated with Saline Saline Saline -Foul Odor after Cleansing No No No -Primary Dressing Applied NonAdherent NonAdherent Aquacel Extra, Contact Layer Contact Layer NonAdherent Contact Layer -Other Dressing abd abd abd -Primary Dressing Covered/Secured with Dry Gauze & Dry Gauze & Dry Gauze & Roll Gauze, Roll Gauze, Roll Gauze, Secured with Secured with Secured with Tape Tape Tape -Other Covering drsg per rb rn per rb rn -Aquacel Extra 1 ble -Compression Wrap Vicente Wrap Vicente Wrap Vicente Wrap Treatment Response Procedure Procedure Procedure Tolerated Well Tolerated Well Tolerated Well Pain Scale: 0-10 Numeric Is Patient Pain Free? Yes Yes Yes WC - Visit Discharge Discharge Condition Stable Stable Stable Ambulatory Status Ambulatory Ambulatory Ambulatory Transportation Private Auto Private Auto Private Auto Assessment/Plan Assessment/Plan (1) Lymphedema: CODE(S): I89.0 - Lymphedema, not elsewhere classified (2) Peripheral vascular disease: CODE(S): I73.9 - Peripheral vascular disease, unspecified (3) Peripheral vascular disease of lower extremity with ulceration: CODE(S): I73.9 - Peripheral vascular disease, unspecified; L97.909 - Non- pressure chronic ulcer of unspecified part of unspecified lower leg with unspecified severity PLAN: Wash left lower leg with antibacterial soap pat dry Apply aquacell extra dressing with Adaptic over top then Mathew Apply a 4 inch Vicente to foot to ankle and then a 6 inch from ankle to knee. Every day may do both legs Patient has called back [facility] for lymphedema pump Follow-up in 1 week
[2023-01-13 08:22] VITALS: BP 186/80; PULSE 92; RESP 18; TEMP 35.9; BMI 59.1
--- NOTE | 2023-01-13 11:41 | PN.PCM_ITS ---
History of Present Illness Date of Service: 01/13/23 Chief Complaint: Follow-up on left lower leg cellulitis and lymphedema History of Wound: 57-year-old white female that is overweight obese. 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 Has developed some cellulitis in the left lower leg which appears to be larger than the right leg. She also is forming some hyperkeratosis probably from using Neosporin ointment on her open wounds. Lymphedema is pretty bad we will start her on wraps this week Progress of Wound: Area is much smaller she is tolerating the Vicente wraps. Patient states her leg is going down. We signed the papers for her to start her pumps for lymphedema that she can start applying during the day twice a day for 30 minutes. The posterior leg areas are smaller she still has some raised skin and she has not started her new antibiotic yet but will start the Cipro twice a day. Subjective Subjective Patient is going to talk to her doctor about getting on the Ozempic injections for diabetes Objective Data Objective Data Really discussed with her about she has to start losing weight and getting the pumps going and taking this seriously we can only skinny down her legs so far she has not called the company back yet about the pumps. She sits all day at her job. And she said she is going to actually talk to her doctor about getting on the Ozempic injections which I suggested would work really well for her and losing weight. Or she could try the Mounjaro shots to those would be even better Vital Signs: Vital Signs Temp Pulse Resp BP O2 Del Method 96.6 F L 92 18 186/80 H Room Air 01/13/23 08:22 01/13/23 08:22 01/13/23 08:22 01/13/23 08:22 12/30/22 08:13 Oxygen Delivery Method Room Air Weight: 366 lb Body Mass Index (BMI) 59.1 Lab / Micro Data Attestation: I reviewed the patient's lab results. Physical Exam Const oriented x3 General Appearance: cooperative Exam Limitations: no limitations HEENT normocephalic Eyes PERRL Pupil: PERRL Neck full ROM Resp normal respiratory effort and clear to auscultation bilaterally Effort and Inspection: able to speak in complete sentences Auscultation: clear to auscultation bilaterally Cardio regular rate and regular rhythm Palpation: normal PMI Rate: regular rate Rhythm: regular rhythm GI Auscultation: normoactive bowel sounds Palpation: soft Extremity General Extremity: normal exam except as noted and other findings Other Details: Lymphedema to bilateral lower legs left leg more swollen than right. Open area on left medial aspect of ankle bumpy and uneven edges looks more vascular Skin no rashes or lesions noted Neuro oriented x3 Psych Appearance: grossly normal Speech: normal speech Thought Content: normal thought content Judgement: judgement good Debridement Note Debridement Note Wound debrided: Left posterior leg peripheral vascular disease with ulcers that open Laterality: Left Type of Debridement: Excisional debridement Anesthesia Used: 5% Lidocaine Gel Depth: Down to and including healthy tissue Percentage of wound debrided: 100 Instrument Used: 5mm curette Tissue Removed: Fibrin and some slough Severity: Limited To Skin Breakdown Amount of bleeding with debridement: Mild Bleeding Controlled with: Compression and gauze Patient tolerated procedure: Patient tolerated procedure well Post-Debridement Measurements and Additional Note: Post-Debridement Measurements/Treatment - Nurse 1 - General Ulcer Assessment Start: 12/23/22 08:26 Freq: Status: Active Protocol: KACI Activity Type Activity Date Activity User E-sign Co-sign Detail Recorded Client Recorded Date Recorded By Document 12/23/22 08:26 [id number] 12/23/22 08:28 Document 12/30/22 08:13 [facility] [id number] 12/30/22 08:22 [facility] Document 01/06/23 08:20 [id number] 01/06/23 08:29 Document 01/13/23 08:22 [id number] 01/13/23 08:24 RB 12/23/22 12/30/22 01/06/23 08:26 08:13 08:20 - Today's Visit Information Type of service Follow-up Visit Follow-up Visit Follow-up Visit (Physician/DISTRIBUTION CLERK (Physician/DISTRIBUTION CLERK (Physician/DISTRIBUTION CLERK ) ) ) Arrival Mode Ambulatory Ambulatory Ambulatory Transfer Assistance None None None Patient Identification Verified (Name & Yes Yes Yes ) Patient Requires Transmission-Based No No No Precautions Height and Weight Body Mass Index (BMI) 59.1 59.1 59.1 BMI Classification Obese Obese Obese Vital Signs Temperature (97.8 F-99.1 F) 97 F L 98 F 97 F L Temperature Source Temporal Temporal Temporal Pulse Rate (60-100) 89 85 88 Pulse Location Monitor Monitor Monitor Respiratory Rate (12-18) 18 16 18 Respiratory rate source Observation Observation Observation Oxygen Delivery Method Room Air Blood Pressure (90/60-120/80) 188/83 H 179/93 H 180/87 H Blood Pressure Mean (mm Hg) 118 121 118 Source Monitor Monitor Position Semi-Fowlers Sitting Semi-Fowlers Blood Pressure Location Left Arm Left Forearm Left Arm History Since Last Visit- (Skip if this is Patient's initial visit) Have you changed medications since your No No No last visit? Any new allergies or adverse reactions No No No Had a fall/change in ADL's that may No No increase risk of falls Signs or symptoms of abuse and/or No No No neglect since last visit Have you been in the hospital since your No No No last visit? Has dressing in place as prescribed Yes No Yes Has compression in place as prescribed Yes No No Has offloadiing in place as prescribed No N/A No Experienced any changes in pain level or No No No management Left Footwear Regular Shoe Right Footwear Regular Shoe Pain Scale: 0-10 Numeric Is Patient Pain Free? Yes Yes Yes 01/13/23 08:22 WC - Today's Visit Information Type of service Follow-up Visit (Physician/DISTRIBUTION CLERK ) Arrival Mode Ambulatory Transfer Assistance None Patient Identification Verified (Name & Yes ) Patient Requires Transmission-Based No Precautions Height and Weight Body Mass Index (BMI) 59.1 BMI Classification Obese Vital Signs Temperature (97.8 F-99.1 F) 96.6 F L Temperature Source Temporal Pulse Rate (60-100) 92 Pulse Location Monitor Respiratory Rate (12-18) 18 Respiratory rate source Observation Oxygen Delivery Method Blood Pressure (90/60-120/80) 186/80 H Blood Pressure Mean (mm Hg) 115 Source Monitor Position Semi-Fowlers Blood Pressure Location Left Arm History Since Last Visit- (Skip if this is Patient's initial visit) Have you changed medications since your No last visit? Any new allergies or adverse reactions No Had a fall/change in ADL's that may No increase risk of falls Signs or symptoms of abuse and/or No neglect since last visit Have you been in the hospital since your No last visit? Has dressing in place as prescribed Yes Has compression in place as prescribed Yes Has offloadiing in place as prescribed No Experienced any changes in pain level or No management Left Footwear Right Footwear Pain Scale: 0-10 Numeric Is Patient Pain Free? Yes WC - Nurse 1 - General Ulcer Measurement Start: 12/23/22 08:26 Freq: Status: Active Protocol: Activity Type Activity Date Activity User E-sign Co-sign Detail Recorded Client Recorded Date Recorded By Document 12/23/22 08:26 RB [id number] 12/23/22 08:28 RB Document 12/30/22 08:13 BMF [id number] 12/30/22 08:22 BMF Document 01/06/23 08:20 RB [id number] 01/06/23 08:29 RB Edit Result 01/06/23 08:20 RB (1) [id number] 01/06/23 08:30 RB Document 01/13/23 08:22 RB [id number] 01/13/23 08:24 RB (1) Left Ankle (cm) 46 => 40 12/23/22 12/30/22 01/06/23 08:26 08:13 08:20 Wound Center Nurse 1 #1- L POST LE -Combined with other wound No No No -Current Size (cm) - Length 11 13 5 -Current Size (cm) - Width 3.7 15.3 9 -Current Size (cm) - Depth 0.1 0.1 0.1 -Total Square Cm 40.7 198.9 45 -Date of Last Picture (Recall this 12/30/22 field) -Photo Taken Yes Yes -Epithelialization None Present -Tunneling No No No -Undermining/Tunneling No No No -Circular Undermining No No No -Exudate Amt Large Large -Exudate Type Serous Serosanguineous -Wound Margin Distinct, Distinct, Outline Outline Attached Attached -Granulation Amt Medium (34-66%) Large (67-100%) Medium (34-66%) -Granulation Quality Mauldin Red Mauldin -Slough/Fibrin Yes Yes Yes -Necrosis Amt Medium (34-66%) Small (1-33%) Medium (34-66%) -Necrotic Tissue Type Adherent Slough Adherent Slough Adherent Slough -Structure Exposed N/A N/A -Texture (Roberta-wound Skin Appearance) Assessed, Assessed, Assessed, Excoriation, Scarring Scarring Localized Edema -Moisture (Roberta-wound Skin Appearance) Assessed Assessed,Dry/ Assessed Scaly -Color (Roberta-wound Skin Appearance) Assessed Assessed Assessed -Temperature (Roberta-wound Skin No Abnormality No Abnormality No Abnormality Appearance) (Pt Warm) (Pt Warm) (Pt Warm) -Tenderness on Palpation (Roberta-wound No No No Skin Appearance) -Ulcer Cleansing Wound Cleanser Soap and Water Wound Cleanser -Foul Odor after Cleansing No No No -Anesthetic Used 5% Lidocaine 4% Lidocaine 5% Lidocaine Gel Solution Gel Lower Limb Edema Present Yes Yes Yes Left Calf (cm) 68 70.3 67.5 Left Ankle (cm) 41 40.5 40 01/13/23 08:22 Wound Center Nurse 1 #1- L POST LE -Combined with other wound No -Current Size (cm) - Length 3.7 -Current Size (cm) - Width 13 -Current Size (cm) - Depth 0.1 -Total Square Cm 48.1 -Date of Last Picture (Recall this field) -Photo Taken Yes -Epithelialization -Tunneling No -Undermining/Tunneling No -Circular Undermining No -Exudate Amt Large -Exudate Type Serosanguineous -Wound Margin Distinct, Outline Attached -Granulation Amt Medium (34-66%) -Granulation Quality Mauldin -Slough/Fibrin Yes -Necrosis Amt Medium (34-66%) -Necrotic Tissue Type Adherent Slough -Structure Exposed N/A -Texture (Roberta-wound Skin Appearance) Assessed, Localized Edema -Moisture (Roberta-wound Skin Appearance) Assessed -Color (Roberta-wound Skin Appearance) Assessed -Temperature (Roberta-wound Skin No Abnormality Appearance) (Pt Warm) -Tenderness on Palpation (Roberta-wound No Skin Appearance) -Ulcer Cleansing Wound Cleanser -Foul Odor after Cleansing No -Anesthetic Used 5% Lidocaine Gel Lower Limb Edema Present Yes Left Calf (cm) 67 Left Ankle (cm) 41 WC - Nurse 2 - General Ulcer CM Notes Start: 12/23/22 08:26 Freq: Status: Active Protocol: Activity Type Activity Date Activity User E-sign Co-sign Detail Recorded Client Recorded Date Recorded By Document 12/23/22 08:39 MW [id number] 12/23/22 08:44 MW Document 12/30/22 08:33 MW [id number] 12/30/22 08:42 MW Edit Result 12/30/22 08:33 MW (1) [id number] 12/30/22 08:48 MW Document 01/06/23 08:37 PL [id number] 01/06/23 08:38 PL Document 01/13/23 08:38 MW [id number] 01/13/23 08:43 MW (1) #1- L POST LE - Debridement, SubQ, ea addt'l 20sq cm => 9 or part thereof 12/23/22 12/30/22 01/06/23 08:39 08:33 08:37 Wound Center Nurse 2 #1- L POST LE -Time 08:40 08:33 08:30 -Correct Patient Yes Yes Yes -Correct Side, Site, Position Yes Yes Yes -Correct Procedure Yes Yes Yes -Procedure Performed Yes Yes Yes -Type of Procedure Debridement Debridement Debridement -Clinical Debridement Subcutaneous Subcutaneous Subcutaneous -Tissue Removed Subcutaneous Subcutaneous Subcutaneous -Post Debridement (cm) - Length 12.0 11.5 3.0 -Post Debridement (cm) - Width 15.0 17.0 6.0 -Post Debridement (cm) - Depth 0.1 0.1 0.1 -Total Square (Post) (cm) 180.00 195.50 18.00 -Area of Debridement (cm) - Length 12.0 11.5 3.0 -Area of Debridement (cm) - Width 15.0 17.0 6.0 -Total Square (Area) (cm) 180.00 195.50 18.00 -Tunneling No No No -Undermining/Tunneling No No No -Circular Undermining No No No -Wound/Ulcer Outcome Not Healed Not Healed Not Healed -Ulcer Cleansing Rinsed/ Rinsed/ Rinsed/ Irrigated with Irrigated with Irrigated with Saline Saline Saline -Foul Odor after Cleansing No No No -Bioengineered Tissue No No No -Bleeding Controlled with Pressure Pressure Pressure -Treatment Response Procedure Procedure Procedure Tolerated Well Tolerated Well Tolerated Well -Offloading No No -Debridement - Subq, 1st 20sq cm Yes Yes Yes -Debridement, SubQ, ea addt'l 20sq cm 9 9 or part thereof Pain Scale: 0-10 Numeric Is Patient Pain Free? Yes Yes Yes 01/13/23 08:38 Wound Center Nurse 2 #1- L POST LE -Time 08:39 -Correct Patient Yes -Correct Side, Site, Position Yes -Correct Procedure Yes -Procedure Performed Yes -Type of Procedure Debridement -Clinical Debridement Subcutaneous -Tissue Removed Subcutaneous -Post Debridement (cm) - Length 5.0 -Post Debridement (cm) - Width 13.0 -Post Debridement (cm) - Depth 0.1 -Total Square (Post) (cm) 65.00 -Area of Debridement (cm) - Length 5.0 -Area of Debridement (cm) - Width 13.0 -Total Square (Area) (cm) 65.00 -Tunneling No -Undermining/Tunneling No -Circular Undermining No -Wound/Ulcer Outcome Not Healed -Ulcer Cleansing Rinsed/ Irrigated with Saline -Foul Odor after Cleansing No -Bioengineered Tissue -Bleeding Controlled with Pressure -Treatment Response Procedure Tolerated Well -Offloading No -Debridement - Subq, 1st 20sq cm Yes -Debridement, SubQ, ea addt'l 20sq cm 3 or part thereof Pain Scale: 0-10 Numeric Is Patient Pain Free? Yes - Nurse 3 - General Ulcer D/C NN Start: 12/23/22 08:26 Freq: Status: Active Protocol: Activity Type Activity Date Activity User E-sign Co-sign Detail Recorded Client Recorded Date Recorded By Document 12/23/22 08:51 [facility] [id number] 12/23/22 08:52 [facility] Document 12/30/22 08:57 [facility] [id number] 12/30/22 08:58 [facility] Document 01/06/23 08:47 [facility] [id number] 01/06/23 08:48 [facility] Document 01/13/23 10:47 [facility] [id number] 01/13/23 10:48 [facility] 12/23/22 12/30/22 01/06/23 08:51 08:57 08:47 Wound Care Center Nurse 3 #1- L POST LE -Ulcer Cleansing Rinsed/ Rinsed/ Rinsed/ Irrigated with Irrigated with Irrigated with Saline Saline Saline -Foul Odor after Cleansing No No No -Primary Dressing Applied NonAdherent NonAdherent Aquacel Extra, Contact Layer Contact Layer NonAdherent Contact Layer -Other Dressing abd abd abd -Primary Dressing Covered/Secured with Dry Gauze & Dry Gauze & Dry Gauze & Roll Gauze, Roll Gauze, Roll Gauze, Secured with Secured with Secured with Tape Tape Tape -Other Covering drsg per rb rn per rb rn -Aquacel Extra 1 ble -Compression Wrap Vicente Wrap Vicente Wrap Vicente Wrap Treatment Response Procedure Procedure Procedure Tolerated Well Tolerated Well Tolerated Well Pain Scale: 0-10 Numeric Is Patient Pain Free? Yes Yes Yes WC - Visit Discharge Discharge Condition Stable Stable Stable Ambulatory Status Ambulatory Ambulatory Ambulatory Transportation Private Auto Private Auto Private Auto 01/13/23 10:47 Wound Care Center Nurse 3 #1- L POST LE -Ulcer Cleansing Rinsed/ Irrigated with Saline -Foul Odor after Cleansing No -Primary Dressing Applied NonAdherent Contact Layer -Other Dressing XEROFORM -Primary Dressing Covered/Secured with Dry Gauze & Roll Gauze, Secured with Tape -Other Covering -Aquacel Extra ble -Compression Wrap Vicente Wrap Treatment Response Procedure Tolerated Well Pain Scale: 0-10 Numeric Is Patient Pain Free? Yes WC - Visit Discharge Discharge Condition Stable Ambulatory Status Ambulatory Transportation Private Auto Assessment/Plan Assessment/Plan (1) Lymphedema: CODE(S): I89.0 - Lymphedema, not elsewhere classified (2) Peripheral vascular disease: CODE(S): I73.9 - Peripheral vascular disease, unspecified (3) Peripheral vascular disease of lower extremity with ulceration: CODE(S): I73.9 - Peripheral vascular disease, unspecified; L97.909 - Non- pressure chronic ulcer of unspecified part of unspecified lower leg with unspecified severity PLAN: Wash left lower leg with antibacterial soap pat dry Apply Xeroform dressing with Adaptic over top then Mathew Apply a 4 inch Vicente to foot to ankle and then a 6 inch from ankle to knee. Every day may do both legs Patient has called back [employer] for lymphedema pump Follow-up in 1 week Discussed with About getting the Ozempic or Mounjaro injections (4) Nonhealing nonsurgical wound: CODE(S): T14.8XXA - Other injury of unspecified body region, initial encounter
[2023-01-20 08:09] VITALS: BP 180/87; PULSE 91; RESP 18; TEMP 36.4; BMI 59.1
--- NOTE | 2023-01-20 08:57 | PN.PCM_ITS ---
History of Present Illness Date of Service: 01/20/23 Chief Complaint: Follow-up on left lower leg cellulitis and lymphedema History of Wound: 57-year-old white female that is overweight obese. 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 Has developed some cellulitis in the left lower leg which appears to be larger than the right leg. She also is forming some hyperkeratosis probably from using Neosporin ointment on her open wounds. Lymphedema is pretty bad we will start her on wraps this week Progress of Wound: Area is much smaller she is tolerating the Vicente wraps. Patient states her leg is going down. We signed the papers for her to start her pumps for lymphedema and she is just waiting for delivery. The posterior leg areas are smaller she still has some raised skin . She will continue using the Xeroform for now and should be finished by next week Subjective Subjective Patient is going to talk to her doctor about starting her on Ozempic Patient is satisfied with outcome so far Objective Data Objective Data No inflammation noted still has a lot of lymphedema tolerating the Vicente wraps wel l. Waiting on delivery of her pumps and they are going to send a outside sales account representative out there to show how to use it. We suggest she started 30 minutes twice a day and work up to 1 hour twice a day. Vital Signs: Vital Signs Temp Pulse Resp BP O2 Del Method 97.5 F L 91 18 180/87 H Room Air 01/20/23 08:09 01/20/23 08:09 01/20/23 08:09 01/20/23 08:09 12/30/22 08:13 Oxygen Delivery Method Room Air Weight: 366 lb Body Mass Index (BMI) 59.1 Lab / Micro Data Attestation: I reviewed the patient's lab results. Physical Exam Const oriented x3 General Appearance: cooperative Exam Limitations: no limitations HEENT normocephalic Eyes PERRL Pupil: PERRL Neck full ROM Resp normal respiratory effort and clear to auscultation bilaterally Effort and Inspection: able to speak in complete sentences Auscultation: clear to auscultation bilaterally Cardio regular rate and regular rhythm Palpation: normal PMI Rate: regular rate Rhythm: regular rhythm GI Auscultation: normoactive bowel sounds Palpation: soft Extremity General Extremity: normal exam except as noted and other findings Other Details: Lymphedema to bilateral lower legs left leg more swollen than right. Open area on left medial aspect of ankle bumpy and uneven edges looks more vascular Skin no rashes or lesions noted Neuro oriented x3 Psych Appearance: grossly normal Speech: normal speech Thought Content: normal thought content Judgement: judgement good Debridement Note Debridement Note Wound debrided: Right posterior lower extremity Type of Debridement: Selective debridement Anesthesia Used: 5% Lidocaine Gel Depth: Down to and including healthy tissue Percentage of wound debrided: 100 Instrument Used: - (Gauze) Tissue Removed: Fibrin Post-Debridement Measurements and Additional Note: Post-Debridement Measurements/Treatment - Nurse 1 - General Ulcer Assessment Start: 12/23/22 08:26 Freq: Status: Active Protocol: [employer] Activity Type Activity Date Activity User E-sign Co-sign Detail Recorded Client Recorded Date Recorded By Document 12/23/22 08:26 [id number] 12/23/22 08:28 Document 12/30/22 08:[address] [facility] [id number] 12/30/22 08:[address] [facility] Document 01/06/23 08:20 RB [id number] 01/06/23 08:29 RB Document 01/13/23 08:22 RB [id number] 01/13/23 08:24 Document 01/20/23 08:09 RB [id number] 01/20/23 08:10 RB 12/23/22 12/30/22 01/06/23 08:26 08:13 08:20 - Today's Visit Information Type of service Follow-up Visit Follow-up Visit Follow-up Visit (Physician/HVAC SALES REPRESENTATIVE (Physician/HVAC SALES REPRESENTATIVE (Physician/HVAC SALES REPRESENTATIVE ) ) ) Arrival Mode Ambulatory Ambulatory Ambulatory Transfer Assistance None None None Patient Identification Verified (Name & Yes Yes Yes ) Patient Requires Transmission-Based No No No Precautions Height and Weight Body Mass Index (BMI) 59.1 59.1 59.1 BMI Classification Obese Obese Obese Vital Signs Temperature (97.8 F-99.1 F) 97 F L 98 F 97 F L Temperature Source Temporal Temporal Temporal Pulse Rate (60-100) 89 85 88 Pulse Location Monitor Monitor Monitor Respiratory Rate (12-18) 18 16 18 Respiratory rate source Observation Observation Observation Oxygen Delivery Method Room Air Blood Pressure (90/60-120/80) 188/83 H 179/93 H 180/87 H Blood Pressure Mean (mm Hg) 118 121 118 Source Monitor Monitor Position Semi-Fowlers Sitting Semi-Fowlers Blood Pressure Location Left Arm Left Forearm Left Arm History Since Last Visit- (Skip if this is Patient's initial visit) Have you changed medications since your No No No last visit? Any new allergies or adverse reactions No No No Had a fall/change in ADL's that may No No increase risk of falls Signs or symptoms of abuse and/or No No No neglect since last visit Have you been in the hospital since your No No No last visit? Has dressing in place as prescribed Yes No Yes Has compression in place as prescribed Yes No No Has offloadiing in place as prescribed No N/A No Experienced any changes in pain level or No No No management Left Footwear Regular Shoe Right Footwear Regular Shoe Pain Scale: 0-10 Numeric Is Patient Pain Free? Yes Yes Yes 01/13/23 01/20/23 08:22 08:09 WC - Today's Visit Information Type of service Follow-up Visit Follow-up Visit (Physician/HVAC SALES REPRESENTATIVE (Physician/HVAC SALES REPRESENTATIVE ) ) Arrival Mode Ambulatory Ambulatory Transfer Assistance None None Patient Identification Verified (Name & Yes Yes ) Patient Requires Transmission-Based No No Precautions Height and Weight Body Mass Index (BMI) 59.1 59.1 BMI Classification Obese Obese Vital Signs Temperature (97.8 F-99.1 F) 96.6 F L 97.5 F L Temperature Source Temporal Oral Pulse Rate (60-100) 92 91 Pulse Location Monitor Monitor Respiratory Rate (12-18) 18 18 Respiratory rate source Observation Observation Oxygen Delivery Method Blood Pressure (90/60-120/80) 186/80 H 180/87 H Blood Pressure Mean (mm Hg) 115 118 Source Monitor Monitor Position Semi-Fowlers Semi-Fowlers Blood Pressure Location Left Arm Left Arm History Since Last Visit- (Skip if this is Patient's initial visit) Have you changed medications since your No No last visit? Any new allergies or adverse reactions No No Had a fall/change in ADL's that may No No increase risk of falls Signs or symptoms of abuse and/or No neglect since last visit Have you been in the hospital since your No No last visit? Has dressing in place as prescribed Yes Yes Has compression in place as prescribed Yes Yes Has offloadiing in place as prescribed No No Experienced any changes in pain level or No No management Left Footwear Right Footwear Pain Scale: 0-10 Numeric Is Patient Pain Free? Yes Yes WC - Nurse 1 - General Ulcer Measurement Start: 12/23/22 08:26 Freq: Status: Active Protocol: Activity Type Activity Date Activity User E-sign Co-sign Detail Recorded Client Recorded Date Recorded By Document 12/23/22 08:26 RB [id number] 12/23/22 08:28 RB Document 12/30/22 08:13 BMF [id number] 12/30/22 08:22 BMF Document 01/06/23 08:20 RB [id number] 01/06/23 08:29 RB Edit Result 01/06/23 08:20 RB (1) [id number] 01/06/23 08:30 RB Document 01/13/23 08:22 RB [id number] 01/13/23 08:24 RB Document 01/20/23 08:09 RB [id number] 01/20/23 08:10 RB (1) Left Ankle (cm) 46 => 40 12/23/22 12/30/22 01/06/23 08:26 08:13 08:20 Wound Center Nurse 1 #1- L POST LE -Combined with other wound No No No -Current Size (cm) - Length 11 13 5 -Current Size (cm) - Width 3.7 15.3 9 -Current Size (cm) - Depth 0.1 0.1 0.1 -Total Square Cm 40.7 198.9 45 -Date of Last Picture (Recall this 12/30/22 field) -Photo Taken Yes Yes -Epithelialization None Present -Tunneling No No No -Undermining/Tunneling No No No -Circular Undermining No No No -Exudate Amt Large Large -Exudate Type Serous Serosanguineous -Wound Margin Distinct, Distinct, Outline Outline Attached Attached -Granulation Amt Medium (34-66%) Large (67-100%) Medium (34-66%) -Granulation Quality [place] Red [place] -Slough/Fibrin Yes Yes Yes -Necrosis Amt Medium (34-66%) Small (1-33%) Medium (34-66%) -Necrotic Tissue Type Adherent Slough Adherent Slough Adherent Slough -Structure Exposed N/A N/A -Texture (Roberta-wound Skin Appearance) Assessed, Assessed, Assessed, Excoriation, Scarring Scarring Localized Edema -Moisture (Roberta-wound Skin Appearance) Assessed Assessed,Dry/ Assessed Scaly -Color (Roberta-wound Skin Appearance) Assessed Assessed Assessed -Temperature (Roberta-wound Skin No Abnormality No Abnormality No Abnormality Appearance) (Pt Warm) (Pt Warm) (Pt Warm) -Tenderness on Palpation (Roberta-wound No No No Skin Appearance) -Ulcer Cleansing Wound Cleanser Soap and Water Wound Cleanser -Foul Odor after Cleansing No No No -Anesthetic Used 5% Lidocaine 4% Lidocaine 5% Lidocaine Gel Solution Gel Lower Limb Edema Present Yes Yes Yes Left Calf (cm) 68 70.3 67.5 Left Ankle (cm) 41 40.5 40 01/13/23 01/20/23 08:22 08:09 Wound Center Nurse 1 #1- L POST LE -Combined with other wound No No -Current Size (cm) - Length 3.7 5.5 -Current Size (cm) - Width 13 14 -Current Size (cm) - Depth 0.1 0.1 -Total Square Cm 48.1 77.0 -Date of Last Picture (Recall this field) -Photo Taken Yes Yes -Epithelialization -Tunneling No No -Undermining/Tunneling No No -Circular Undermining No No -Exudate Amt Large Large -Exudate Type Serosanguineous Serosanguineous -Wound Margin Distinct, Distinct, Outline Outline Attached Attached -Granulation Amt Medium (34-66%) Medium (34-66%) -Granulation Quality K[place] Hyper- granulation, [place] -Slough/Fibrin Yes Yes -Necrosis Amt Medium (34-66%) Medium (34-66%) -Necrotic Tissue Type Adherent Slough Adherent Slough -Structure Exposed N/A N/A -Texture (Roberta-wound Skin Appearance) Assessed, Assessed, Localized Edema Localized Edema -Moisture (Roberta-wound Skin Appearance) Assessed Assessed -Color (Roberta-wound Skin Appearance) Assessed Assessed -Temperature (Roberta-wound Skin No Abnormality No Abnormality Appearance) (Pt Warm) (Pt Warm) -Tenderness on Palpation (Roberta-wound No No Skin Appearance) -Ulcer Cleansing Wound Cleanser Wound Cleanser -Foul Odor after Cleansing No No -Anesthetic Used 5% Lidocaine 5% Lidocaine Gel Gel Lower Limb Edema Present Yes Yes Left Calf (cm) 67 67.4 Left Ankle (cm) 41 40.6 WC - Nurse 2 - General Ulcer CM Notes Start: 12/23/22 08:26 Freq: Status: Active Protocol: Activity Type Activity Date Activity User E-sign Co-sign Detail Recorded Client Recorded Date Recorded By Document 12/23/22 08:39 MW [id number] 12/23/22 08:44 MW Document 12/30/22 08:33 MW [id number] 12/30/22 08:42 MW Edit Result 12/30/22 08:33 MW (1) [id number] 12/30/22 08:48 MW Document 01/06/23 08:37 PL [id number] 01/06/23 08:38 PL Document 01/13/23 08:38 MW [id number] 01/13/23 08:43 MW Document 01/20/23 08:27 MW [id number] 01/20/23 08:29 MW (1) #1- L POST LE - Debridement, SubQ, ea addt'l 20sq cm => 9 or part thereof 12/23/22 12/30/22 01/06/23 08:39 08:33 08:37 Wound Center Nurse 2 #1- L POST LE -Time 08:40 08:33 08:30 -Correct Patient Yes Yes Yes -Correct Side, Site, Position Yes Yes Yes -Correct Procedure Yes Yes Yes -Procedure Performed Yes Yes Yes -Type of Procedure Debridement Debridement Debridement -Clinical Debridement Subcutaneous Subcutaneous Subcutaneous -Tissue Removed Subcutaneous Subcutaneous Subcutaneous -Post Debridement (cm) - Length 12.0 11.5 3.0 -Post Debridement (cm) - Width 15.0 17.0 6.0 -Post Debridement (cm) - Depth 0.1 0.1 0.1 -Total Square (Post) (cm) 180.00 195.50 18.00 -Area of Debridement (cm) - Length 12.0 11.5 3.0 -Area of Debridement (cm) - Width 15.0 17.0 6.0 -Total Square (Area) (cm) 180.00 195.50 18.00 -Tunneling No No No -Undermining/Tunneling No No No -Circular Undermining No No No -Wound/Ulcer Outcome Not Healed Not Healed Not Healed -Ulcer Cleansing Rinsed/ Rinsed/ Rinsed/ Irrigated with Irrigated with Irrigated with Saline Saline Saline -Foul Odor after Cleansing No No No -Bioengineered Tissue No No No -Bleeding Controlled with Pressure Pressure Pressure -Treatment Response Procedure Procedure Procedure Tolerated Well Tolerated Well Tolerated Well -Offloading No No -Debridement - Open, 1st 20sq cm -Debridement, Open, ea addt'l 20sq cm or part thereof -Debridement - Subq, 1st 20sq cm Yes Yes Yes -Debridement, SubQ, ea addt'l 20sq cm 9 9 or part thereof Pain Scale: 0-10 Numeric Is Patient Pain Free? Yes Yes Yes 01/13/23 01/20/23 08:38 08:27 Wound Center Nurse 2 #1- L POST LE -Time 08:39 08:27 -Correct Patient Yes Yes -Correct Side, Site, Position Yes Yes -Correct Procedure Yes Yes -Procedure Performed Yes Yes -Type of Procedure Debridement Debridement -Clinical Debridement Subcutaneous Epidermis / Dermis -Tissue Removed Subcutaneous Epidermis -Post Debridement (cm) - Length 5.0 4.0 -Post Debridement (cm) - Width 13.0 7.0 -Post Debridement (cm) - Depth 0.1 0.1 -Total Square (Post) (cm) 65.00 28.00 -Area of Debridement (cm) - Length 5.0 4.0 -Area of Debridement (cm) - Width 13.0 7.0 -Total Square (Area) (cm) 65.00 28.00 -Tunneling No No -Undermining/Tunneling No No -Circular Undermining No No -Wound/Ulcer Outcome Not Healed Not Healed -Ulcer Cleansing Rinsed/ Rinsed/ Irrigated with Irrigated with Saline Saline -Foul Odor after Cleansing No No -Bioengineered Tissue No -Bleeding Controlled with Pressure Pressure -Treatment Response Procedure Procedure Tolerated Well Tolerated Well -Offloading No No -Debridement - Open, 1st 20sq cm Yes -Debridement, Open, ea addt'l 20sq cm 1 or part thereof -Debridement - Subq, 1st 20sq cm Yes -Debridement, SubQ, ea addt'l 20sq cm 3 or part thereof Pain Scale: 0-10 Numeric Is Patient Pain Free? Yes Yes WC - Nurse 3 - General Ulcer D/C NN Start: 12/23/22 08:26 Freq: Status: Active Protocol: Activity Type Activity Date Activity User E-sign Co-sign Detail Recorded Client Recorded Date Recorded By Document 12/23/22 08:[address] [facility] [id number] 12/23/22 08:[address] [facility] Document 12/30/22 08:[address] [facility] [id number] 12/30/22 08:[address] [facility] Document 01/06/23 08:[address] [facility] [id number] 01/06/23 08:[address] [facility] Document 01/13/23 10:[address] [facility] [id number] 01/13/23 10:[address] [facility] Document 01/20/23 08:46 RB [id number] 01/20/23 08:47 RB 12/23/22 12/30/22 01/06/23 08:51 08:57 08:47 Wound Care Center Nurse 3 #1- L POST LE -Ulcer Cleansing Rinsed/ Rinsed/ Rinsed/ Irrigated with Irrigated with Irrigated with Saline Saline Saline -Foul Odor after Cleansing No No No -Primary Dressing Applied NonAdherent NonAdherent Aquacel Extra, Contact Layer Contact Layer NonAdherent Contact Layer -Other Dressing abd abd abd -Primary Dressing Covered/Secured with Dry Gauze & Dry Gauze & Dry Gauze & Roll Gauze, Roll Gauze, Roll Gauze, Secured with Secured with Secured with Tape Tape Tape -Other Covering drsg per rb rn per rb rn -Aquacel Extra 1 ble -Compression Wrap Vicente Wrap Vicente Wrap Vicente Wrap -Other Treatment Response Procedure Procedure Procedure Tolerated Well Tolerated Well Tolerated Well Pain Scale: 0-10 Numeric Is Patient Pain Free? Yes Yes Yes WC - Visit Discharge Discharge Condition Stable Stable Stable Ambulatory Status Ambulatory Ambulatory Ambulatory Transportation Private Auto Private Auto Private Auto Medication Reconcilliation completed & provided to patient/care provider Clinical Summary of Care Provided 01/13/23 01/20/23 10:47 08:46 Wound Care Center Nurse 3 #1- L POST LE -Ulcer Cleansing Rinsed/ Rinsed/ Irrigated with Irrigated with Saline Saline -Foul Odor after Cleansing No -Primary Dressing Applied NonAdherent Contact Layer -Other Dressing XEROFORM xeroform/abd/ kerlix/vicente -Primary Dressing Covered/Secured with Dry Gauze & Roll Gauze, Secured with Tape -Other Covering -Aquacel Extra ble -Compression Wrap Vicente Wrap -Other vicente Treatment Response Procedure Procedure Tolerated Well Tolerated Well Pain Scale: 0-10 Numeric Is Patient Pain Free? Yes Yes WC - Visit Discharge Discharge Condition Stable Stable Ambulatory Status Ambulatory Ambulatory Transportation Private Auto Private Auto Medication Reconcilliation completed & No provided to patient/care provider Clinical Summary of Care Provided Yes Assessment/Plan Assessment/Plan (1) Lymphedema: CODE(S): I89.0 - Lymphedema, not elsewhere classified (2) Peripheral vascular disease: CODE(S): I73.9 - Peripheral vascular disease, unspecified (3) Peripheral vascular disease of lower extremity with ulceration: CODE(S): I73.9 - Peripheral vascular disease, unspecified; L97.909 - Non- pressure chronic ulcer of unspecified part of unspecified lower leg with unspecified severity PLAN: Wash left lower leg with antibacterial soap pat dry Apply Xeroform dressing with Adaptic over top then Mathew Apply a 4 inch Vicente to foot to ankle and then a 6 inch from ankle to knee. Every day may do both legs Patient to get delivery of her lymphedema pumps Follow-up in 1 week Discussed with About getting the Ozempic or Mounjaro injections (4) Nonhealing nonsurgical wound: CODE(S): T14.8XXA - Other injury of unspecified body region, initial encounter
== END 2023-01-20 23:59 | disposition home or self-care (01) ==
LOC: WC 08:00
PROVIDERS: PCP Internal Medicine; Referring Provider Internal Medicine; Visit Provider Nurse Practitioner
DX: E11.622 Type 2 diabetes mellitus with other skin ulcer (principal); E11.51 Type 2 diabetes mellitus with diabetic peripheral angiopathy without gangrene; L97.321 Non-pressure chronic ulcer of left ankle limited to breakdown of skin; Z68.43 Body mass index [BMI] 50.0-59.9, adult; L03.116 Cellulitis of left lower limb; I89.0 Lymphedema, not elsewhere classified; E66.9 Obesity, unspecified; Z79.82 Long term (current) use of aspirin; Z79.899 Other long term (current) drug therapy
CPT/HCPCS: 11042; 11045; 97597; 97598

== ENCOUNTER → 2023-01-20 | Outpatient (CLI) | payer BC, SELFPAY ==
--- NOTE | 2023-01-20 13:32 | BI_ITS ---
MAMMOGRAPHY - BILATERAL SCREENING REASON FOR EXAM: Female, 57 years old. Routine annual screening examination. PERTINENT HISTORY: Non-contributory. History of prior bilateral breast reduction surgery. TECHNIQUE: Digital bilateral breast ton (3D mammographic acquisition) in the CC and MLO projections. 2-D mediolateral oblique (MLO) and craniocaudad (CC) views of both breasts were obtained. CAD: Full Field Digital Mammography with Computer Added Detection was performed. COMPARISON: Comparison is made with prior study dated January 08, 2022 and February 29, 2020. FINDINGS: Breast Composition: There are scattered areas of fibroglandular density. There are no dominant masses or suspicious calcifications. Stable asymmetric breast tissue with more breast tissue is seen in the left retroareolar region as compared to the right side. No other significant abnormalities are identified. There has been no significant change since the prior study. BI/SCRN MAMM (CAD)W/TON BILAT IMPRESSION: Stable bilateral screening mammogram. Yearly follow-up mammogram recommended. (A) ASSESSMENT CATEGORY: BIRADS Category 2: Benign. A letter regarding these results will be sent to the patient by the facility within 30 days. Approximately 10% of breast cancers are not detected by mammography. A normal mammogram should not delay biopsy of a clinically suspicious abnormality. [id number] Electronically Signed: Jori Berry MD at 14:45 EDT ,
== END | disposition home or self-care (01) ==
LOC: OPBI 13:31
PROVIDERS: PCP Internal Medicine; Referring Provider Internal Medicine; Visit Provider Internal Medicine
DX: Z12.31 Encounter for screening mammogram for malignant neoplasm of breast (principal)
CPT/HCPCS: 77063; 77067

== ENCOUNTER 2023-02-17 08:00 | Outpatient (RCR) | payer BC, SELFPAY ==
[2023-01-21 00:41] VITALS: BP 180/87; PULSE 91; RESP 18; TEMP 36.4; BMI 59.1
[2023-01-27 08:24] VITALS: BP 176/90; PULSE 92; TEMP 36.2; BMI 59.1
--- NOTE | 2023-01-27 08:49 | PN.PCM_ITS ---
History of Present Illness Date of Service: 01/27/23 Chief Complaint: Follow-up on left lower leg cellulitis and lymphedema History of Wound: 57-year-old white female that is overweight obese. 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 Has developed some cellulitis in the left lower leg which appears to be larger than the right leg. She also is forming some hyperkeratosis probably from using Neosporin ointment on her open wounds. Lymphedema is pretty bad we will start her on wraps this week Progress of Wound: The wound is about the same . but flatter and less angry. Still waiting for her to get the pumps going she has them at home now but she is try to get a hold of the wrap. Been very frustrating its been like a phone tag thing I cannot get her to do anything. Her doctor is finally going to order her Ozempic but has to go through preauthorization that will be another week or 2. She really does not do a whole lot for getting herself in shape. And her legs really really really need the pumps to get better. Subjective Subjective Patient is still trying to get a hold of the lymphedema people the rep says that she is not called but she says she has so where at that point. Objective Data Objective Data Again the area is about the same less angry but flatter looks good we will continue with the Xeroform it seems to be healing it she just needs compression better compression than what she is getting on the Vicente wrap's. Vital Signs: Vital Signs Temp Pulse Resp BP 97.2 F L 92 18 176/90 H 01/27/23 08:24 01/27/23 08:24 01/21/23 00:41 01/27/23 08:24 Weight: 366 lb Body Mass Index (BMI) 59.1 Physical Exam Const oriented x3 General Appearance: cooperative Exam Limitations: no limitations HEENT normocephalic Eyes PERRL Pupil: PERRL Neck full ROM Resp normal respiratory effort and clear to auscultation bilaterally Effort and Inspection: able to speak in complete sentences Auscultation: clear to auscultation bilaterally Cardio regular rate and regular rhythm Palpation: normal PMI Rate: regular rate Rhythm: regular rhythm GI Auscultation: normoactive bowel sounds Palpation: soft Extremity General Extremity: normal exam except as noted and other findings Other Details: Lymphedema to bilateral lower legs left leg more swollen than right. Open area on left medial aspect of ankle bumpy and uneven edges looks more vascular Skin no rashes or lesions noted Neuro oriented x3 Psych Appearance: grossly normal Speech: normal speech Thought Content: normal thought content Judgement: judgement good Debridement Note Debridement Note Wound debrided: Left posterior open wound from her lymphedema and peripheral vascular disea Type of Debridement: Selective debridement Anesthesia Used: 5% Lidocaine Gel Depth: Down to and including healthy tissue Percentage of wound debrided: 100 Instrument Used: - (Gauze and pressure) Tissue Removed: Fibrin Severity: Limited To Skin Breakdown Amount of bleeding with debridement: Mild Bleeding Controlled with: Pressure Patient tolerated procedure: Patient tolerated procedure well Post-Debridement Measurements and Additional Note: Post-Debridement Measurements/Treatment WC - Nurse 1 - General Ulcer Assessment Start: 01/27/23 08:23 Freq: Status: Active Protocol: SHIV.LOWLEIGH ANNT Activity Type Activity Date Activity User E-sign Co-sign Detail Recorded Client Recorded Date Recorded By Document 01/27/23 08:24 JACK [id number] 01/27/23 08:26 JACK 01/27/23 08:24 WC - Today's Visit Information Type of service Follow-up Visit (Physician/FRAUD ANALYST ) Arrival Mode Ambulatory Patient Identification Verified (Name & Yes ) Patient Requires Transmission-Based No Precautions Safety Precautions NA Height and Weight Body Mass Index (BMI) 59.1 BMI Classification Obese Vital Signs Temperature (97.8 F-99.1 F) 97.2 F L Temperature Source Temporal Pulse Rate (60-100) 92 Pulse Location Monitor Blood Pressure (90/60-120/80) 176/90 H Blood Pressure Mean (mm Hg) 118 Source Monitor History Since Last Visit- (Skip if this is Patient's initial visit) Have you changed medications since your No last visit? Any new allergies or adverse reactions No Had a fall/change in ADL's that may No increase risk of falls Signs or symptoms of abuse and/or No neglect since last visit Have you been in the hospital since your No last visit? Has dressing in place as prescribed Yes Has compression in place as prescribed Yes Has offloadiing in place as prescribed N/A Experienced any changes in pain level or No management Left Footwear Regular Shoe Right Footwear Regular Shoe Pain Scale: 0-10 Numeric Is Patient Pain Free? No WC - Nurse 1 - General Ulcer Measurement Start: 01/27/23 08:23 Freq: Status: Active Protocol: Activity Type Activity Date Activity User E-sign Co-sign Detail Recorded Client Recorded Date Recorded By Document 01/27/23 08:24 AK [id number] 01/27/23 08:26 AK 01/27/23 08:24 Wound Center Nurse 1 #1- L POST LE -Combined with other wound No -Current Size (cm) - Length 13 -Current Size (cm) - Width 14 -Current Size (cm) - Depth 0.1 -Total Square Cm 182 -Date of Last Picture (Recall this 01/27/23 field) -Photo Taken Yes -Tunneling No -Undermining/Tunneling No -Circular Undermining No -Change in Wound Grade/Stage No -Exudate Amt Large -Exudate Type Serosanguineous -Wound Margin Distinct, Outline Attached -Granulation Amt Large (67-100%) -Granulation Quality Red -Slough/Fibrin No -Necrosis Amt Small (1-33%) -Necrotic Tissue Type Adherent Slough -Structure Exposed N/A -Texture (Roberta-wound Skin Appearance) Assessed, Localized Edema ,Scarring -Moisture (Roberta-wound Skin Appearance) Assessed, Weeping -Color (Roberta-wound Skin Appearance) No Abnormality, Assessed -Temperature (Roberta-wound Skin No Abnormality Appearance) (Pt Warm) -Tenderness on Palpation (Roberta-wound No Skin Appearance) -Ulcer Cleansing Rinsed/ Irrigated with Saline -Foul Odor after Cleansing No -Anesthetic Used 4% Lidocaine Solution Lower Limb Edema Present No Left Calf (cm) 68 Left Ankle (cm) 41 WC - Nurse 2 - General Ulcer CM Notes Start: 01/27/23 08:23 Freq: Status: Active Protocol: Activity Type Activity Date Activity User E-sign Co-sign Detail Recorded Client Recorded Date Recorded By Document 01/27/23 08:38 MW Desktop 01/27/23 08:42 MW 01/27/23 08:38 Wound Center Nurse 2 #1- L POST LE -Time 08:39 -Correct Patient Yes -Correct Side, Site, Position Yes -Correct Procedure Yes -Procedure Performed Yes -Type of Procedure Debridement -Clinical Debridement Epidermis / Dermis -Tissue Removed Epidermis -Post Debridement (cm) - Length 5.0 -Post Debridement (cm) - Width 14.0 -Post Debridement (cm) - Depth 0.1 -Total Square (Post) (cm) 70.00 -Area of Debridement (cm) - Length 5.0 -Area of Debridement (cm) - Width 14.0 -Total Square (Area) (cm) 70.00 -Tunneling No -Undermining/Tunneling No -Circular Undermining No -Wound/Ulcer Outcome Not Healed -Ulcer Cleansing Rinsed/ Irrigated with Saline -Foul Odor after Cleansing No -Bioengineered Tissue No -Bleeding Controlled with Pressure -Treatment Response Procedure Tolerated Well -Offloading No -Debridement - Open, 1st 20sq cm Yes -Debridement, Open, ea addt'l 20sq cm 3 or part thereof Pain Scale: 0-10 Numeric Is Patient Pain Free? Yes Assessment/Plan Assessment/Plan (1) Lymphedema: CODE(S): I89.0 - Lymphedema, not elsewhere classified (2) Peripheral vascular disease: CODE(S): I73.9 - Peripheral vascular disease, unspecified (3) Peripheral vascular disease of lower extremity with ulceration: CODE(S): I73.9 - Peripheral vascular disease, unspecified; L97.909 - Non- pressure chronic ulcer of unspecified part of unspecified lower leg with unspecified severity PLAN: Wash left lower leg with antibacterial soap pat dry Apply Xeroform dressing with Adaptic over top then Mathew Apply a 4 inch Vicente to foot to ankle and then a 6 inch from ankle to knee. Every day may do both legs Patient to get delivery of her lymphedema pumps Follow-up in 1 week Get the Ozempic started Get the pumps going now that she has them at home start using 1/2-hour 2 times a day up to move up to 1 hour twice a day would be great. (4) Nonhealing nonsurgical wound: CODE(S): T14.8XXA - Other injury of unspecified body region, initial encounter (5) Non-pressure ulcer of left lower extremity: CODE(S): L97.929 - Non-pressure chronic ulcer of unspecified part of left lower leg with unspecified severity
[2023-02-03 08:21] VITALS: BP 164/84; PULSE 84; RESP 18; TEMP 35.7; BMI 59.1
--- NOTE | 2023-02-03 08:50 | PN.PCM_ITS ---
History of Present Illness Date of Service: 02/03/23 Chief Complaint: Follow-up on left lower leg cellulitis and lymphedema History of Wound: 57-year-old white female that is overweight obese. 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 Has developed some cellulitis in the left lower leg which appears to be larger than the right leg. She also is forming some hyperkeratosis probably from using Neosporin ointment on her open wounds. Lymphedema is pretty bad we will start her on wraps this week Progress of Wound: She only has the posterior left lower leg superficial but still open. I discussed with her is probably rubbing on chairs and pants and at work her chair so it can be hard to close that 1 because of the size of the leg. Patient did receive her pumps and has been pumping 1 hour twice a day which is good. We will continue the Xeroform and does seem to be closing her legs and I suggested that she start using amLactin cream to the nonopened areas for the dry skin and to keep her skin supple. Subjective Subjective Patient wanted to use Eucerin but I suggested she buy AmLactin. She is happy with outcomes things are going well Objective Data Objective Data Same as above patient still has that wound on the posterior part we will continue with the Xeroform did measure larger because were clustering it hopefully the pumps will help with all this. Vital Signs: Vital Signs Temp Pulse Resp BP 96.3 F L 84 18 164/84 H 02/03/23 08:21 02/03/23 08:21 02/03/23 08:21 02/03/23 08:21 Weight: 366 lb Body Mass Index (BMI) 59.1 Lab / Micro Data Attestation: I reviewed the patient's lab results. Physical Exam Const oriented x3 General Appearance: cooperative Exam Limitations: no limitations HEENT normocephalic Eyes PERRL Pupil: PERRL Neck full ROM Resp normal respiratory effort and clear to auscultation bilaterally Effort and Inspection: able to speak in complete sentences Auscultation: clear to auscultation bilaterally Cardio regular rate and regular rhythm Palpation: normal PMI Rate: regular rate Rhythm: regular rhythm GI Auscultation: normoactive bowel sounds Palpation: soft Extremity General Extremity: normal exam except as noted and other findings Other Details: Lymphedema to bilateral lower legs left leg more swollen than right. Open area on left medial aspect of ankle bumpy and uneven edges looks more vascular Skin no rashes or lesions noted Neuro oriented x3 Psych Appearance: grossly normal Speech: normal speech Thought Content: normal thought content Judgement: judgement good Debridement Note Debridement Note Wound debrided: Left posterior lower leg open wounds from nonpressure Type of Debridement: Excisional debridement Anesthesia Used: 5% Lidocaine Gel Depth: Down to and including healthy tissue Percentage of wound debrided: 100 Instrument Used: 7mm curette Tissue Removed: Fibrin Severity: Limited To Skin Breakdown Amount of bleeding with debridement: Mild Bleeding Controlled with: Compression and gauze Patient tolerated procedure: Patient tolerated procedure well Post-Debridement Measurements and Additional Note: Post-Debridement Measurements/Treatment WC - Nurse 1 - General Ulcer Assessment Start: 01/27/23 08:23 Freq: Status: Active Protocol: KACI Activity Type Activity Date Activity User E-sign Co-sign Detail Recorded Client Recorded Date Recorded By Document 01/27/23 08:24 AK [id number] 01/27/23 08:26 AK Document 02/03/23 08:21 RB [id number] 02/03/23 08:23 RB 01/27/23 02/03/23 08:24 08:21 - Today's Visit Information Type of service Follow-up Visit Follow-up Visit (Physician/CLINICAL EDUCATION MANAGER (Physician/CLINICAL EDUCATION MANAGER ) ) Arrival Mode Ambulatory Ambulatory Transfer Assistance None Patient Identification Verified (Name & Yes Yes ) Patient Requires Transmission-Based No No Precautions Safety Precautions NA Height and Weight Body Mass Index (BMI) 59.1 59.1 BMI Classification Obese Obese Vital Signs Temperature (97.8 F-99.1 F) 97.2 F L 96.3 F L Temperature Source Temporal Temporal Pulse Rate (60-100) 92 84 Pulse Location Monitor Monitor Respiratory Rate (12-18) 18 Respiratory rate source Observation Blood Pressure (90/60-120/80) 176/90 H 164/84 H Blood Pressure Mean (mm Hg) 118 110 Source Monitor Monitor Position Semi-Fowlers Blood Pressure Location Left Arm History Since Last Visit- (Skip if this is Patient's initial visit) Have you changed medications since your No No last visit? Any new allergies or adverse reactions No No Had a fall/change in ADL's that may No No increase risk of falls Signs or symptoms of abuse and/or No No neglect since last visit Have you been in the hospital since your No No last visit? Has dressing in place as prescribed Yes Yes Has compression in place as prescribed Yes Yes Has offloadiing in place as prescribed N/A No Experienced any changes in pain level or No No management Left Footwear Regular Shoe Right Footwear Regular Shoe Pain Scale: 0-10 Numeric Is Patient Pain Free? No Yes WC - Nurse 1 - General Ulcer Measurement Start: 01/27/23 08:23 Freq: Status: Active Protocol: Activity Type Activity Date Activity User E-sign Co-sign Detail Recorded Client Recorded Date Recorded By Document 01/27/23 08:24 AK [id number] 01/27/23 08:26 AK Document 02/03/23 08:21 RB [id number] 02/03/23 08:23 RB 01/27/23 02/03/23 08:24 08:21 Wound Center Nurse 1 #1- L POST LE -Combined with other wound No No -Current Size (cm) - Length 13 5 -Current Size (cm) - Width 14 11 -Current Size (cm) - Depth 0.1 0.1 -Total Square Cm 182 55 -Date of Last Picture (Recall this 01/27/23 field) -Photo Taken Yes Yes -Tunneling No No -Undermining/Tunneling No No -Circular Undermining No No -Change in Wound Grade/Stage No -Exudate Amt Large Large -Exudate Type Serosanguineous Serosanguineous -Wound Margin Distinct, Distinct, Outline Outline Attached Attached -Granulation Amt Large (67-100%) Large (67-100%) -Granulation Quality Red [place] -Slough/Fibrin No Yes -Necrosis Amt Small (1-33%) Medium (34-66%) -Necrotic Tissue Type Adherent Slough Adherent Slough -Structure Exposed N/A N/A -Texture (Roberta-wound Skin Appearance) Assessed, Assessed Localized Edema ,Scarring -Moisture (Roberta-wound Skin Appearance) Assessed, Weeping Weeping -Color (Roberta-wound Skin Appearance) No Abnormality, Assessed Assessed -Temperature (Roberta-wound Skin No Abnormality No Abnormality Appearance) (Pt Warm) (Pt Warm) -Tenderness on Palpation (Roberta-wound No No Skin Appearance) -Ulcer Cleansing Rinsed/ Wound Cleanser Irrigated with Saline -Foul Odor after Cleansing No No -Anesthetic Used 4% Lidocaine 5% Lidocaine Solution Gel Lower Limb Edema Present No Yes Left Calf (cm) 68 67.5 Left Ankle (cm) 41 38 WC - Nurse 2 - General Ulcer CM Notes Start: 01/27/23 08:23 Freq: Status: Active Protocol: Activity Type Activity Date Activity User E-sign Co-sign Detail Recorded Client Recorded Date Recorded By Document 01/27/23 08:38 MW Desktop 01/27/23 08:42 MW Document 02/03/23 08:32 MW [id number] 02/03/23 08:36 MW 01/27/23 02/03/23 08:38 08:32 Wound Center Nurse 2 #1- L POST LE -Time 08:39 08:32 -Correct Patient Yes Yes -Correct Side, Site, Position Yes Yes -Correct Procedure Yes Yes -Procedure Performed Yes Yes -Type of Procedure Debridement Debridement -Clinical Debridement Epidermis / Subcutaneous Dermis -Tissue Removed Epidermis Subcutaneous -Post Debridement (cm) - Length 5.0 13.0 -Post Debridement (cm) - Width 14.0 14.0 -Post Debridement (cm) - Depth 0.1 0.1 -Total Square (Post) (cm) 70.00 182.00 -Area of Debridement (cm) - Length 5.0 13.0 -Area of Debridement (cm) - Width 14.0 14.0 -Total Square (Area) (cm) 70.00 182.00 -Tunneling No No -Undermining/Tunneling No No -Circular Undermining No No -Wound/Ulcer Outcome Not Healed Not Healed -Ulcer Cleansing Rinsed/ Rinsed/ Irrigated with Irrigated with Saline Saline -Foul Odor after Cleansing No No -Bioengineered Tissue No No -Bleeding Controlled with Pressure Pressure -Treatment Response Procedure Procedure Tolerated Well Tolerated Well -Offloading No No -Debridement - Open, 1st 20sq cm Yes -Debridement, Open, ea addt'l 20sq cm 3 or part thereof -Debridement - Subq, 1st 20sq cm Yes -Debridement, SubQ, ea addt'l 20sq cm 9 or part thereof Pain Scale: 0-10 Numeric Is Patient Pain Free? Yes Yes SHIV - Nurse 3 - General Ulcer D/C NN Start: 01/27/23 08:23 Freq: Status: Active Protocol: Activity Type Activity Date Activity User E-sign Co-sign Detail Recorded Client Recorded Date Recorded By Document 01/27/23 10:20 AK [id number] 01/27/23 10:22 AK Document 02/03/23 08:39 MW [id number] 02/03/23 08:40 MW 01/27/23 02/03/23 10:20 08:39 Wound Care Center Nurse 3 #1- L POST LE -Ulcer Cleansing Rinsed/ Rinsed/ Irrigated with Irrigated with Saline Saline -Foul Odor after Cleansing No No -Negative Pressure Wound Therapy N/A N/A -Primary Dressing Applied NonAdherent Contact Layer -Other Dressing xeroform xerofrom -Primary Dressing Covered/Secured with Dry Gauze & Dry Gauze & Roll Gauze, Roll Gauze, Secured with Secured with Tape Tape -Other Covering abd pad Left -Lotion applied to leg before No compression wrap -Compression Wrap Vicente Wrap Treatment Response Procedure Tolerated Well Pain Scale: 0-10 Numeric Is Patient Pain Free? Yes Yes Teaching: Wound Center Dressing Your Wound -Person Taught Patient -Teaching Method Demonstration -Response to teaching Verbalize understanding WC - Visit Discharge Discharge Condition Stable Stable Ambulatory Status Ambulatory Ambulatory Transportation Private Auto Private Auto Accompanied by self Medication Reconcilliation completed & Yes No provided to patient/care provider Clinical Summary of Care Provided Yes Yes Assessment/Plan Assessment/Plan (1) Lymphedema: CODE(S): I89.0 - Lymphedema, not elsewhere classified (2) Peripheral vascular disease: CODE(S): I73.9 - Peripheral vascular disease, unspecified (3) Peripheral vascular disease of lower extremity with ulceration: CODE(S): I73.9 - Peripheral vascular disease, unspecified; L97.909 - Non- pressure chronic ulcer of unspecified part of unspecified lower leg with unspecified severity PLAN: Wash left lower leg with antibacterial soap pat dry Apply Xeroform dressing with Adaptic over top then Mathew Apply a 4 inch Vicente to foot to ankle and then a 6 inch from ankle to knee. Every day may do both legs Continue lymphedema pumps 1 hour twice a day Follow-up in 1 week Get the Ozempic started (4) Nonhealing nonsurgical wound: CODE(S): T14.8XXA - Other injury of unspecified body region, initial encounter (5) Non-pressure ulcer of left lower extremity: CODE(S): L97.929 - Non-pressure chronic ulcer of unspecified part of left lower leg with unspecified severity
[2023-02-10 08:09] VITALS: BP 160/84; PULSE 88; RESP 18; TEMP 36.4; BMI 59.1
--- NOTE | 2023-02-10 08:40 | PCM.WC.PN ---
History of Present Illness Date of Service: 02/10/23 Chief Complaint: Follow-up on left lower leg cellulitis and lymphedema History of Wound: 57-year-old white female that is overweight obese. 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 Has developed some cellulitis in the left lower leg which appears to be larger than the right leg. She also is forming some hyperkeratosis probably from using Neosporin ointment on her open wounds. Lymphedema is pretty bad we will start her on wraps this week Progress of Wound: This week the posterior left leg is worse in measurement. Still superficial, and bleeds easily with debridement. She is using her pumps 1 hour twice a day. Tolerating that very well. The rest of her leg looks fine and no sign of infection. Obtain cultures also Subjective Subjective Patient complains had a lot more oozing and had this wang matter coming out most of it was just skin but. Objective Data Objective Data Debrided with a 7 mm for a lot of skin and brown-wang skin. Still open posterior. She had noted a odor but I smell nothing. Vital Signs: Vital Signs Temp Pulse Resp BP 97.6 F L 88 18 160/84 H 02/10/23 08:09 02/10/23 08:09 02/10/23 08:09 02/10/23 08:09 Weight: 366 lb Body Mass Index (BMI) 59.1 Lab / Micro Data Attestation: I reviewed the patient's lab results. Physical Exam Const oriented x3 General Appearance: cooperative Exam Limitations: no limitations HEENT normocephalic Eyes PERRL Pupil: PERRL Neck full ROM Resp normal respiratory effort and clear to auscultation bilaterally Effort and Inspection: able to speak in complete sentences Auscultation: clear to auscultation bilaterally Cardio regular rate and regular rhythm Palpation: normal PMI Rate: regular rate Rhythm: regular rhythm GI Auscultation: normoactive bowel sounds Palpation: soft Extremity General Extremity: normal exam except as noted and other findings Other Details: Lymphedema to bilateral lower legs left leg more swollen than right. Open area on left medial aspect of ankle bumpy and uneven edges looks more vascular Skin no rashes or lesions noted Neuro oriented x3 Psych Appearance: grossly normal Speech: normal speech Thought Content: normal thought content Judgement: judgement good Debridement Note Debridement Note Wound debrided: Left posterior leg from cellulitis and open wound nonpressure Type of Debridement: Excisional debridement Anesthesia Used: 5% Lidocaine Gel Depth: Down to and including healthy tissue Percentage of wound debrided: 100 Instrument Used: 7mm curette Tissue Removed: Fibrin and devitalized tissue Severity: Limited To Skin Breakdown Amount of bleeding with debridement: Mild Bleeding Controlled with: Compression and gauze Patient tolerated procedure: Patient tolerated procedure well Post-Debridement Measurements and Additional Note: Post-Debridement Measurements/Treatment - Nurse 1 - General Ulcer Assessment Start: 01/27/23 08:23 Freq: Status: Active Protocol: [id number] Activity Type Activity Date Activity User E-sign Co-sign Detail Recorded Client Recorded Date Recorded By Document 01/27/23 08:24 AK [id number] 01/27/23 08:26 AK Document 02/03/23 08:21 RB [id number] 02/03/23 08:23 RB Document 02/10/23 08:09 RB [id number] 02/10/23 08:11 RB 01/27/23 02/03/23 02/10/23 08:24 08:21 08:09 - Today's Visit Information Type of service Follow-up Visit Follow-up Visit Follow-up Visit (Physician/PIGMENT PUMPER (Physician/PIGMENT PUMPER (Physician/PIGMENT PUMPER ) ) ) Arrival Mode Ambulatory Ambulatory Ambulatory Transfer Assistance None None Patient Identification Verified (Name & Yes Yes Yes ) Patient Requires Transmission-Based No No No Precautions Safety Precautions NA Height and Weight Body Mass Index (BMI) 59.1 59.1 59.1 BMI Classification Obese Obese Obese Vital Signs Temperature (97.8 F-99.1 F) 97.2 F L 96.3 F L 97.6 F L Temperature Source Temporal Temporal Temporal Pulse Rate (60-100) 92 84 88 Pulse Location Monitor Monitor Monitor Respiratory Rate (12-18) 18 18 Respiratory rate source Observation Observation Blood Pressure (90/60-120/80) 176/90 H 164/84 H 160/84 H Blood Pressure Mean (mm Hg) 118 110 109 Source Monitor Monitor Monitor Position Semi-Fowlers Semi-Fowlers Blood Pressure Location Left Arm Left Arm History Since Last Visit- (Skip if this is Patient's initial visit) Have you changed medications since your No No No last visit? Any new allergies or adverse reactions No No No Had a fall/change in ADL's that may No No No increase risk of falls Signs or symptoms of abuse and/or No No No neglect since last visit Have you been in the hospital since your No No No last visit? Has dressing in place as prescribed Yes Yes Yes Has compression in place as prescribed Yes Yes Yes Has offloadiing in place as prescribed N/A No No Experienced any changes in pain level or No No No management Left Footwear Regular Shoe Right Footwear Regular Shoe Pain Scale: 0-10 Numeric Is Patient Pain Free? No Yes Yes WC - Nurse 1 - General Ulcer Measurement Start: 01/27/23 08:23 Freq: Status: Active Protocol: Activity Type Activity Date Activity User E-sign Co-sign Detail Recorded Client Recorded Date Recorded By Document 01/27/23 08:24 AK [id number] 01/27/23 08:26 AK Document 02/03/23 08:21 RB [id number] 02/03/23 08:23 RB Document 02/10/23 08:09 RB [id number] 02/10/23 08:11 RB 01/27/23 02/03/23 02/10/23 08:24 08:21 08:09 Wound Center Nurse 1 #1- L POST LE -Combined with other wound No No No -Current Size (cm) - Length 13 5 13 -Current Size (cm) - Width 14 11 18.5 -Current Size (cm) - Depth 0.1 0.1 0.1 -Total Square Cm 182 55 240.5 -Date of Last Picture (Recall this 01/27/23 field) -Photo Taken Yes Yes Yes -Tunneling No No No -Undermining/Tunneling No No No -Circular Undermining No No No -Change in Wound Grade/Stage No -Exudate Amt Large Large Large -Exudate Type Serosanguineous Serosanguineous Serosanguineous -Wound Margin Distinct, Distinct, Distinct, Outline Outline Outline Attached Attached Attached -Granulation Amt Large (67-100%) Large (67-100%) Large (67-100%) -Granulation Quality Red Chipley Chipley -Slough/Fibrin No Yes Yes -Necrosis Amt Small (1-33%) Medium (34-66%) Medium (34-66%) -Necrotic Tissue Type Adherent Slough Adherent Slough Adherent Slough -Structure Exposed N/A N/A N/A -Texture (Roberta-wound Skin Appearance) Assessed, Assessed Localized Edema Localized Edema ,Scarring -Moisture (Roberta-wound Skin Appearance) Assessed, Weeping Assessed Weeping -Color (Roberta-wound Skin Appearance) No Abnormality, Assessed Assessed Assessed -Temperature (Roberta-wound Skin No Abnormality No Abnormality No Abnormality Appearance) (Pt Warm) (Pt Warm) (Pt Warm) -Tenderness on Palpation (Roberta-wound No No No Skin Appearance) -Ulcer Cleansing Rinsed/ Wound Cleanser Wound Cleanser Irrigated with Saline -Foul Odor after Cleansing No No No -Anesthetic Used 4% Lidocaine 5% Lidocaine 5% Lidocaine Solution Gel Gel Lower Limb Edema Present No Yes Yes Left Calf (cm) 68 67.5 66.5 Left Ankle (cm) 41 38 39.5 WC - Nurse 2 - General Ulcer CM Notes Start: 01/27/23 08:23 Freq: Status: Active Protocol: Activity Type Activity Date Activity User E-sign Co-sign Detail Recorded Client Recorded Date Recorded By Document 01/27/23 08:38 MW Desktop 01/27/23 08:42 MW Document 02/03/23 08:32 MW [id number] 02/03/23 08:36 MW Document 02/10/23 08:22 MW [id number] 02/10/23 08:28 MW 01/27/23 02/03/23 02/10/23 08:38 08:32 08:22 Wound Center Nurse 2 #1- L POST LE -Time 08:39 08:32 08:23 -Correct Patient Yes Yes Yes -Correct Side, Site, Position Yes Yes Yes -Correct Procedure Yes Yes Yes -Procedure Performed Yes Yes Yes -Type of Procedure Debridement Debridement Debridement -Clinical Debridement Epidermis / Subcutaneous Subcutaneous Dermis -Tissue Removed Epidermis Subcutaneous Epidermis, Subcutaneous -Post Debridement (cm) - Length 5.0 13.0 12.0 -Post Debridement (cm) - Width 14.0 14.0 20.0 -Post Debridement (cm) - Depth 0.1 0.1 0.1 -Total Square (Post) (cm) 70.00 182.00 240.00 -Area of Debridement (cm) - Length 5.0 13.0 12.0 -Area of Debridement (cm) - Width 14.0 14.0 20.0 -Total Square (Area) (cm) 70.00 182.00 240.00 -Tunneling No No No -Undermining/Tunneling No No No -Circular Undermining No No No -Wound/Ulcer Outcome Not Healed Not Healed Not Healed -Ulcer Cleansing Rinsed/ Rinsed/ Rinsed/ Irrigated with Irrigated with Irrigated with Saline Saline Saline -Foul Odor after Cleansing No No No -Bioengineered Tissue No No No -Bleeding Controlled with Pressure Pressure Pressure -Treatment Response Procedure Procedure Procedure Tolerated Well Tolerated Well Tolerated Well -Offloading No No No -Debridement - Open, 1st 20sq cm Yes -Debridement, Open, ea addt'l 20sq cm 3 or part thereof -Debridement - Subq, 1st 20sq cm Yes Yes -Debridement, SubQ, ea addt'l 20sq cm 9 12 or part thereof Pain Scale: 0-10 Numeric Is Patient Pain Free? Yes Yes Yes WC - Nurse 3 - General Ulcer D/C NN Start: 01/27/23 08:23 Freq: Status: Active Protocol: Activity Type Activity Date Activity User E-sign Co-sign Detail Recorded Client Recorded Date Recorded By Document 01/27/23 10:20 AK [id number] 01/27/23 10:22 AK Document 02/03/23 08:39 MW [id number] 02/03/23 08:40 MW Document 02/10/23 08:31 [facility] [id number] 02/10/23 08:34 BMF 01/27/23 02/03/23 02/10/23 10:20 08:39 08:31 Wound Care Center Nurse 3 #1- L POST LE -Ulcer Cleansing Rinsed/ Rinsed/ Rinsed/ Irrigated with Irrigated with Irrigated with Saline Saline Saline -Foul Odor after Cleansing No No No -Negative Pressure Wound Therapy N/A N/A -Primary Dressing Applied NonAdherent Fibracol Plus Contact Layer 4x4 -Other Dressing xeroform xerofrom per rb rn -Primary Dressing Covered/Secured with Dry Gauze & Dry Gauze & Dry Gauze & Roll Gauze, Roll Gauze, Roll Gauze, Secured with Secured with Secured with Tape Tape Tape -Other Covering abd pad -Fibracol Plus 4x4 2 Right -Compression Wrap Vicente Wrap Left -Lotion applied to leg before No compression wrap -Compression Wrap Vicente Wrap Vicente Wrap Treatment Response Procedure Procedure Tolerated Well Tolerated Well Pain Scale: 0-10 Numeric Is Patient Pain Free? Yes Yes Yes Teaching: Wound Center Dressing Your Wound -Person Taught Patient -Teaching Method Demonstration -Response to teaching Verbalize understanding WC - Visit Discharge Discharge Condition Stable Stable Stable Ambulatory Status Ambulatory Ambulatory Ambulatory Transportation Private Auto Private Auto Private Auto Accompanied by self Medication Reconcilliation completed & Yes No provided to patient/care provider Clinical Summary of Care Provided Yes Yes Assessment/Plan Assessment/Plan (1) Lymphedema: CODE(S): I89.0 - Lymphedema, not elsewhere classified (2) Peripheral vascular disease: CODE(S): I73.9 - Peripheral vascular disease, unspecified (3) Peripheral vascular disease of lower extremity with ulceration: CODE(S): I73.9 - Peripheral vascular disease, unspecified; L97.909 - Non-pressure chronic ulcer of unspecified part of unspecified lower leg with unspecified severity PLAN: Wash left lower leg with antibacterial soap pat dry Apply fibricol dressing with Adaptic over top then Mathew Apply a 4 inch Vicente to foot to ankle and then a 6 inch from ankle to knee. Every day may do both legs Continue lymphedema pumps 1 hour twice a day Follow-up in 1 week Ozempic is pending with preauthorization (4) Nonhealing nonsurgical wound: CODE(S): T14.8XXA - Other injury of unspecified body region, initial encounter (5) Non-pressure ulcer of left lower extremity: CODE(S): L97.929 - Non-pressure chronic ulcer of unspecified part of left lower leg with unspecified severity
[2023-02-17 08:04] VITALS: BP 182/83; PULSE 88; RESP 16; TEMP 36.4; BMI 59.1
--- NOTE | 2023-02-17 09:43 | PCM.WC.PN ---
History of Present Illness Date of Service: 02/17/23 Chief Complaint: Follow-up on left lower leg cellulitis and lymphedema History of Wound: 57-year-old white female that is overweight obese. 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 Has developed some cellulitis in the left lower leg which appears to be larger than the right leg. She also is forming some hyperkeratosis probably from using Neosporin ointment on her open wounds. Lymphedema is pretty bad we will start her on wraps this week Progress of Wound: This week the posterior left leg is worse in measurement. Still superficial, and bleeds easily with debridement. She is growing 2 organisms that are treatable there was actually 4 bacteria's on the culture She is using her pumps 1 hour twice a day. Tolerating that very well. She still complains that they have not gotten her Ozempic going yet there is still waiting on pending on her insurance. Still using her pumps 2 hours a day morning and night. Subjective Subjective Still feels discouraged because there is still have an open areas on the back of her left leg with bacteria growing Objective Data Objective Data Still superficial on the back of her leg no odor noted just trying to get this bacteria under control for healing purposes Vital Signs: Vital Signs Temp Pulse Resp BP O2 Del Method 97.6 F L 88 16 182/83 H Room Air 02/17/23 08:04 02/17/23 08:04 02/17/23 08:04 02/17/23 08:04 02/17/23 08:04 Oxygen Delivery Method Room Air Weight: 366 lb Body Mass Index (BMI) 59.1 Lab / Micro Data Attestation: I reviewed the patient's lab results. Micro: Microbiology 02/11/23 08:25 Wound Abcess - Leg, Left Gram Stain - Final 02/11/23 08:25 Wound Abcess - Leg, Left Wound Culture - Final Streptococcus group C Aerococcus viridans. Corynebacterium striatum Pseudomonas aeruginosa Stenotrophomonas maltophilia 02/11/23 08:25 Wound Abcess - Leg, Left Anaerobic Culture - Final No anaerobic bacteria isolated. Physical Exam Const oriented x3 General Appearance: cooperative Exam Limitations: no limitations HEENT normocephalic Eyes PERRL Pupil: PERRL Neck full ROM Resp normal respiratory effort and clear to auscultation bilaterally Effort and Inspection: able to speak in complete sentences Auscultation: clear to auscultation bilaterally Cardio regular rate and regular rhythm Palpation: normal PMI Rate: regular rate Rhythm: regular rhythm GI Auscultation: normoactive bowel sounds Palpation: soft Extremity General Extremity: normal exam except as noted and other findings Other Details: Lymphedema to bilateral lower legs left leg more swollen than right. Open area on left medial aspect of ankle bumpy and uneven edges looks more vascular Skin no rashes or lesions noted Neuro oriented x3 Psych Appearance: grossly normal Speech: normal speech Thought Content: normal thought content Judgement: judgement good Debridement Note Debridement Note Wound debrided: Left posterior lower leg nonhealing nonpressure wounds Type of Debridement: Excisional debridement Anesthesia Used: 5% Lidocaine Gel Depth: in the subcutaneous layer Percentage of wound debrided: 100 Instrument Used: 7mm curette Tissue Removed: Fibrin Severity: Limited To Skin Breakdown Amount of bleeding with debridement: Mild Bleeding Controlled with: Compression and gauze Patient tolerated procedure: Patient tolerated procedure well Post-Debridement Measurements and Additional Note: Post-Debridement Measurements/Treatment - Nurse 1 - General Ulcer Assessment Start: 01/27/23 08:23 Freq: Status: Active Protocol: KACI Activity Type Activity Date Activity User E-sign Co-sign Detail Recorded Client Recorded Date Recorded By Document 01/27/23 08:24 AL [id number] 01/27/23 08:26 AL Document 02/03/23 08:21 RB [id number] 02/03/23 08:23 RB Document 02/10/23 08:09 RB [id number] 02/10/23 08:11 RB Document 02/17/23 08:04 [facility] [id number] 02/17/23 08:07 [facility] 01/27/23 02/03/23 02/10/23 08:24 08:21 08:09 - Today's Visit Information Type of service Follow-up Visit Follow-up Visit Follow-up Visit (Physician/MOBILE PARAMEDICAL EXAMINER (Physician/MOBILE PARAMEDICAL EXAMINER (Physician/MOBILE PARAMEDICAL EXAMINER ) ) ) Arrival Mode Ambulatory Ambulatory Ambulatory Transfer Assistance None None Patient Identification Verified (Name & Yes Yes Yes ) Patient Requires Transmission-Based No No No Precautions Safety Precautions NA Height and Weight Body Mass Index (BMI) 59.1 59.1 59.1 BMI Classification Obese Obese Obese Vital Signs Temperature (97.8 F-99.1 F) 97.2 F L 96.3 F L 97.6 F L Temperature Source Temporal Temporal Temporal Pulse Rate (60-100) 92 84 88 Pulse Location Monitor Monitor Monitor Respiratory Rate (12-18) 18 18 Respiratory rate source Observation Observation Oxygen Delivery Method Blood Pressure (90/60-120/80) 176/90 H 164/84 H 160/84 H Blood Pressure Mean (mm Hg) 118 110 109 Source Monitor Monitor Monitor Position Semi-Fowlers Semi-Fowlers Blood Pressure Location Left Arm Left Arm History Since Last Visit- (Skip if this is Patient's initial visit) Have you changed medications since your No No No last visit? Any new allergies or adverse reactions No No No Had a fall/change in ADL's that may No No No increase risk of falls Signs or symptoms of abuse and/or No No No neglect since last visit Have you been in the hospital since your No No No last visit? Has dressing in place as prescribed Yes Yes Yes Has compression in place as prescribed Yes Yes Yes Has offloadiing in place as prescribed N/A No No Experienced any changes in pain level or No No No management Left Footwear Regular Shoe Right Footwear Regular Shoe Pain Scale: 0-10 Numeric Is Patient Pain Free? No Yes Yes 02/17/23 08:04 WC - Today's Visit Information Type of service Follow-up Visit (Physician/MOBILE PARAMEDICAL EXAMINER ) Arrival Mode Ambulatory Transfer Assistance None Patient Identification Verified (Name & Yes ) Patient Requires Transmission-Based No Precautions Safety Precautions Height and Weight Body Mass Index (BMI) 59.1 BMI Classification Obese Vital Signs Temperature (97.8 F-99.1 F) 97.6 F L Temperature Source Temporal Pulse Rate (60-100) 88 Pulse Location Monitor Respiratory Rate (12-18) 16 Respiratory rate source Observation Oxygen Delivery Method Room Air Blood Pressure (90/60-120/80) 182/83 H Blood Pressure Mean (mm Hg) 116 Source Monitor Position Sitting Blood Pressure Location Left Arm History Since Last Visit- (Skip if this is Patient's initial visit) Have you changed medications since your No last visit? Any new allergies or adverse reactions No Had a fall/change in ADL's that may No increase risk of falls Signs or symptoms of abuse and/or No neglect since last visit Have you been in the hospital since your No last visit? Has dressing in place as prescribed Yes Has compression in place as prescribed Yes Has offloadiing in place as prescribed N/A Experienced any changes in pain level or No management Left Footwear Regular Shoe Right Footwear Regular Shoe Pain Scale: 0-10 Numeric Is Patient Pain Free? Yes WC - Nurse 1 - General Ulcer Measurement Start: 01/27/23 08:23 Freq: Status: Active Protocol: Activity Type Activity Date Activity User E-sign Co-sign Detail Recorded Client Recorded Date Recorded By Document 01/27/23 08:24 AK [id number] 01/27/23 08:26 AK Document 02/03/23 08:21 RB [id number] 02/03/23 08:23 RB Document 02/10/23 08:09 RB [id number] 02/10/23 08:11 RB Document 02/17/23 08:04 BMF [id number] 02/17/23 08:07 BMF 01/27/23 02/03/23 02/10/23 08:24 08:21 08:09 Wound Center Nurse 1 #1- L POST LE -Combined with other wound No No No -Current Size (cm) - Length 13 5 13 -Current Size (cm) - Width 14 11 18.5 -Current Size (cm) - Depth 0.1 0.1 0.1 -Total Square Cm 182 55 240.5 -Date of Last Picture (Recall this 01/27/23 field) -Photo Taken Yes Yes Yes -Epithelialization -Tunneling No No No -Undermining/Tunneling No No No -Circular Undermining No No No -Change in Wound Grade/Stage No -Exudate Amt Large Large Large -Exudate Type Serosanguineous Serosanguineous Serosanguineous -Wound Margin Distinct, Distinct, Distinct, Outline Outline Outline Attached Attached Attached -Granulation Amt Large (67-100%) Large (67-100%) Large (67-100%) -Granulation Quality Red Whiteash Whiteash -Slough/Fibrin No Yes Yes -Necrosis Amt Small (1-33%) Medium (34-66%) Medium (34-66%) -Necrotic Tissue Type Adherent Slough Adherent Slough Adherent Slough -Structure Exposed N/A N/A N/A -Texture (Roberta-wound Skin Appearance) Assessed, Assessed Localized Edema Localized Edema ,Scarring -Moisture (Roberta-wound Skin Appearance) Assessed, Weeping Assessed Weeping -Color (Roberta-wound Skin Appearance) No Abnormality, Assessed Assessed Assessed -Temperature (Roberta-wound Skin No Abnormality No Abnormality No Abnormality Appearance) (Pt Warm) (Pt Warm) (Pt Warm) -Tenderness on Palpation (Roberta-wound No No No Skin Appearance) -Ulcer Cleansing Rinsed/ Wound Cleanser Wound Cleanser Irrigated with Saline -Foul Odor after Cleansing No No No -Anesthetic Used 4% Lidocaine 5% Lidocaine 5% Lidocaine Solution Gel Gel Lower Limb Edema Present No Yes Yes Left Calf (cm) 68 67.5 66.5 Left Ankle (cm) 41 38 39.5 02/17/23 08:04 Wound Center Nurse 1 #1- L POST LE -Combined with other wound No -Current Size (cm) - Length 13 -Current Size (cm) - Width 16.1 -Current Size (cm) - Depth 0.1 -Total Square Cm 209.3 -Date of Last Picture (Recall this 02/17/23 field) -Photo Taken Yes -Epithelialization None Present -Tunneling No -Undermining/Tunneling No -Circular Undermining No -Change in Wound Grade/Stage -Exudate Amt Large -Exudate Type Serous -Wound Margin Distinct, Outline Attached -Granulation Amt Large (67-100%) -Granulation Quality Red -Slough/Fibrin No -Necrosis Amt Small (1-33%) -Necrotic Tissue Type Adherent Slough -Structure Exposed -Texture (Roberta-wound Skin Appearance) Assessed, Excoriation, Scarring -Moisture (Roberta-wound Skin Appearance) Assessed -Color (Roberta-wound Skin Appearance) Assessed, Erythema -Temperature (Roberta-wound Skin No Abnormality Appearance) (Pt Warm) -Tenderness on Palpation (Roberta-wound No Skin Appearance) -Ulcer Cleansing Rinsed/ Irrigated with Saline -Foul Odor after Cleansing No -Anesthetic Used 4% Lidocaine Solution Lower Limb Edema Present Yes Left Calf (cm) 64.4 Left Ankle (cm) 38 WC - Nurse 2 - General Ulcer CM Notes Start: 01/27/23 08:23 Freq: Status: Active Protocol: Activity Type Activity Date Activity User E-sign Co-sign Detail Recorded Client Recorded Date Recorded By Document 01/27/23 08:38 MW Desktop 06/07/23 08:42 MW Document 02/03/23 08:32 MW [id number] 02/03/23 08:36 MW Document 02/10/23 08:22 MW [id number] 02/10/23 08:28 MW Document 02/17/23 08:52 PL [id number] 02/17/23 08:54 PL 01/27/23 02/03/23 02/10/23 08:38 08:32 08:22 Wound Center Nurse 2 #1- L POST LE -Time 08:39 08:32 08:23 -Correct Patient Yes Yes Yes -Correct Side, Site, Position Yes Yes Yes -Correct Procedure Yes Yes Yes -Procedure Performed Yes Yes Yes -Type of Procedure Debridement Debridement Debridement -Clinical Debridement Epidermis / Subcutaneous Subcutaneous Dermis -Tissue Removed Epidermis Subcutaneous Epidermis, Subcutaneous -Post Debridement (cm) - Length 5.0 13.0 12.0 -Post Debridement (cm) - Width 14.0 14.0 20.0 -Post Debridement (cm) - Depth 0.1 0.1 0.1 -Total Square (Post) (cm) 70.00 182.00 240.00 -Area of Debridement (cm) - Length 5.0 13.0 12.0 -Area of Debridement (cm) - Width 14.0 14.0 20.0 -Total Square (Area) (cm) 70.00 182.00 240.00 -Tunneling No No No -Undermining/Tunneling No No No -Circular Undermining No No No -Wound/Ulcer Outcome Not Healed Not Healed Not Healed -Ulcer Cleansing Rinsed/ Rinsed/ Rinsed/ Irrigated with Irrigated with Irrigated with Saline Saline Saline -Foul Odor after Cleansing No No No -Bioengineered Tissue No No No -Bleeding Controlled with Pressure Pressure Pressure -Treatment Response Procedure Procedure Procedure Tolerated Well Tolerated Well Tolerated Well -Offloading No No No -Debridement - Open, 1st 20sq cm Yes -Debridement, Open, ea addt'l 20sq cm 3 or part thereof -Debridement - Subq, 1st 20sq cm Yes Yes -Debridement, SubQ, ea addt'l 20sq cm 9 12 or part thereof Pain Scale: 0-10 Numeric Is Patient Pain Free? Yes Yes Yes 02/17/23 08:52 Wound Center Nurse 2 #1- L POST LE -Time 08:20 -Correct Patient Yes -Correct Side, Site, Position Yes -Correct Procedure Yes -Procedure Performed Yes -Type of Procedure Debridement -Clinical Debridement Subcutaneous -Tissue Removed Subcutaneous -Post Debridement (cm) - Length 12.5 -Post Debridement (cm) - Width 20.0 -Post Debridement (cm) - Depth 0.1 -Total Square (Post) (cm) 250.00 -Area of Debridement (cm) - Length 12.5 -Area of Debridement (cm) - Width 20 -Total Square (Area) (cm) 250.0 -Tunneling No -Undermining/Tunneling No -Circular Undermining No -Wound/Ulcer Outcome Not Healed -Ulcer Cleansing Rinsed/ Irrigated with Saline -Foul Odor after Cleansing No -Bioengineered Tissue No -Bleeding Controlled with Pressure -Treatment Response Procedure Tolerated Well -Offloading -Debridement - Open, 1st 20sq cm -Debridement, Open, ea addt'l 20sq cm or part thereof -Debridement - Subq, 1st 20sq cm Yes -Debridement, SubQ, ea addt'l 20sq cm 11 or part thereof Pain Scale: 0-10 Numeric Is Patient Pain Free? Yes WC - Nurse 3 - General Ulcer D/C NN Start: 01/27/23 08:23 Freq: Status: Active Protocol: Activity Type Activity Date Activity User E-sign Co-sign Detail Recorded Client Recorded Date Recorded By Document 01/27/23 10:20 AK [id number] 01/27/23 10:22 AK Document 02/03/23 08:39 MW [id number] 02/03/23 08:40 MW Document 02/10/23 08:31 [facility] [id number] 02/10/23 08:34 BM Document 02/17/23 08:32 BM [id number] 02/17/23 08:33 BMF 01/27/23 02/03/23 02/10/23 10:20 08:39 08:31 Wound Care Center Nurse 3 #1- L POST LE -Ulcer Cleansing Rinsed/ Rinsed/ Rinsed/ Irrigated with Irrigated with Irrigated with Saline Saline Saline -Foul Odor after Cleansing No No No -Negative Pressure Wound Therapy N/A N/A -Primary Dressing Applied NonAdherent Fibracol Plus Contact Layer 4x4 -Other Dressing xeroform xerofrom per rb rn -Primary Dressing Covered/Secured with Dry Gauze & Dry Gauze & Dry Gauze & Roll Gauze, Roll Gauze, Roll Gauze, Secured with Secured with Secured with Tape Tape Tape -Other Covering abd pad -Fibracol Plus 4x4 2 Right -Compression Wrap Vicente Wrap Left -Lotion applied to leg before No compression wrap -Compression Wrap Vicente Wrap Vicente Wrap Treatment Response Procedure Procedure Tolerated Well Tolerated Well Pain Scale: 0-10 Numeric Is Patient Pain Free? Yes Yes Yes Teaching: Wound Center Dressing Your Wound -Person Taught Patient -Teaching Method Demonstration -Response to teaching Verbalize understanding WC - Visit Discharge Discharge Condition Stable Stable Stable Ambulatory Status Ambulatory Ambulatory Ambulatory Transportation Private Auto Private Auto Private Auto Accompanied by self Medication Reconcilliation completed & Yes No provided to patient/care provider Clinical Summary of Care Provided Yes Yes 02/17/23 08:32 Wound Care Center Nurse 3 #1- L POST LE -Ulcer Cleansing Soap and Water -Foul Odor after Cleansing No -Negative Pressure Wound Therapy -Primary Dressing Applied Fibracol Plus 4x4 -Other Dressing abd -Primary Dressing Covered/Secured with Dry Gauze & Roll Gauze, Secured with Tape -Other Covering -Fibracol Plus 4x4 1 Right -Compression Wrap Left -Lotion applied to leg before compression wrap -Compression Wrap Vicente Wrap Treatment Response Procedure Tolerated Well Pain Scale: 0-10 Numeric Is Patient Pain Free? Yes Teaching: Wound Center Dressing Your Wound -Person Taught -Teaching Method -Response to teaching WC - Visit Discharge Discharge Condition Stable Ambulatory Status Ambulatory Transportation Private Auto Accompanied by Medication Reconcilliation completed & provided to patient/care provider Clinical Summary of Care Provided Assessment/Plan Assessment/Plan (1) Lymphedema: CODE(S): I89.0 - Lymphedema, not elsewhere classified (2) Peripheral vascular disease: CODE(S): I73.9 - Peripheral vascular disease, unspecified (3) Peripheral vascular disease of lower extremity with ulceration: CODE(S): I73.9 - Peripheral vascular disease, unspecified; L97.909 - Non-pressure chronic ulcer of unspecified part of unspecified lower leg with unspecified severity PLAN: Wash left lower leg with antibacterial soap pat dry Apply fibricol dressing with Adaptic over top then Mathew Apply a 4 inch Vicente to foot to ankle and then a 6 inch from ankle to knee. Every day may do both legs Continue lymphedema pumps 1 hour twice a day Start the ciprofloxacin 500 mg twice daily for 14 days and then she will start the doxycycline twice daily for 14 days Follow-up in 1 week Ozempic is pending with preauthorization (4) Nonhealing nonsurgical wound: CODE(S): T14.8XXA - Other injury of unspecified body region, initial encounter (5) Non-pressure ulcer of left lower extremity: CODE(S): L97.929 - Non-pressure chronic ulcer of unspecified part of left lower leg with unspecified severity QUALIFIERS: Non-pressure ulcer stage: limited to breakdown of skin Qualified Code(s): L97.921 - Non-pressure chronic ulcer of unspecified part of left lower leg limited to breakdown of skin
== END 2023-02-19 23:59 | disposition home or self-care (01) ==
LOC: WC 08:00
PROVIDERS: PCP Internal Medicine; Referring Provider Internal Medicine; Visit Provider Nurse Practitioner
DX: L97.821 Non-pressure chronic ulcer of other part of left lower leg limited to breakdown of skin (principal); I73.9 Peripheral vascular disease, unspecified; L03.116 Cellulitis of left lower limb; I89.0 Lymphedema, not elsewhere classified; Z79.82 Long term (current) use of aspirin; Z79.899 Other long term (current) drug therapy
CPT/HCPCS: 11042; 11045; 87070; 87075; 87077; 87186; 87205; 97597; 97598

== ENCOUNTER 2023-02-24 07:52 | Outpatient (RCR) | payer BC, SELFPAY ==
[2023-02-20 01:27] VITALS: BP 182/83; PULSE 88; RESP 16; TEMP 36.4; BMI 59.1
[2023-02-24 08:19] VITALS: BP 167/90; PULSE 79; RESP 18; TEMP 36.3; BMI 59.1
--- NOTE | 2023-02-24 11:52 | PCM.WC.PN ---
History of Present Illness Date of Service: 02/24/23 Chief Complaint: Follow-up on left lower leg cellulitis and lymphedema History of Wound: 57-year-old white female that is overweight obese. 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 Has developed some cellulitis in the left lower leg which appears to be larger than the right leg. She also is forming some hyperkeratosis probably from using Neosporin ointment on her open wounds. Lymphedema is pretty bad we will start her on wraps this week Progress of Wound: Today the leg is completely healed and patient will be discharged from the wound center Subjective Subjective She is very excited about not having to come back again the leg looks nice and dry and clean. 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 on the Ozempic and getting approval for it Objective Data Objective Data Patient's leg is healed patient be discharged from the wound center follow-up as needed Vital Signs: Vital Signs Temp Pulse Resp BP 97.4 F L 79 18 167/90 H 02/24/23 08:19 02/24/23 08:19 02/24/23 08:19 02/24/23 08:19 Weight: 366 lb Body Mass Index (BMI) 59.1 Physical Exam Const oriented x3 General Appearance: cooperative Exam Limitations: no limitations HEENT normocephalic Eyes PERRL Pupil: PERRL Neck full ROM Resp normal respiratory effort and clear to auscultation bilaterally Effort and Inspection: able to speak in complete sentences Auscultation: clear to auscultation bilaterally Cardio regular rate and regular rhythm Palpation: normal PMI Rate: regular rate Rhythm: regular rhythm GI Auscultation: normoactive bowel sounds Palpation: soft Extremity General Extremity: normal exam except as noted and other findings Other Details: Lymphedema to bilateral lower legs left leg more swollen than right. Open area on left medial aspect of ankle bumpy and uneven edges looks more vascular Skin no rashes or lesions noted Neuro oriented x3 Psych Appearance: grossly normal Speech: normal speech Thought Content: normal thought content Judgement: judgement good Debridement Note Debridement Note No debridement was completed: No debridement was completed today Post-Debridement Measurements and Additional Note: Post-Debridement Measurements/Treatment SHIV - Nurse 1 - General Ulcer Assessment Start: 02/24/23 08:19 Freq: Status: Active Protocol: KACI Activity Type Activity Date Activity User E-sign Co-sign Detail Recorded Client Recorded Date Recorded By Document 02/24/23 08:19 RB [id number] 02/24/23 08:21 RB 02/24/23 08:19 WC - Today's Visit Information Type of service Follow-up Visit (Physician/BAG LOADER ) Arrival Mode Ambulatory Transfer Assistance None Patient Identification Verified (Name & Yes ) Patient Requires Transmission-Based No Precautions Height and Weight Body Mass Index (BMI) 59.1 BMI Classification Obese Vital Signs Temperature (97.8 F-99.1 F) 97.4 F L Temperature Source Temporal Pulse Rate (60-100) 79 Pulse Location Monitor Respiratory Rate (12-18) 18 Respiratory rate source Observation Blood Pressure (90/60-120/80) 167/90 H Blood Pressure Mean (mm Hg) 115 Source Monitor Position Semi-Fowlers Blood Pressure Location Left Arm History Since Last Visit- (Skip if this is Patient's initial visit) Have you changed medications since your No last visit? Any new allergies or adverse reactions No Had a fall/change in ADL's that may No increase risk of falls Signs or symptoms of abuse and/or No neglect since last visit Have you been in the hospital since your No last visit? Has dressing in place as prescribed Yes Has compression in place as prescribed Yes Has offloadiing in place as prescribed No Experienced any changes in pain level or No management Pain Scale: 0-10 Numeric Is Patient Pain Free? Yes - Nurse 1 - General Ulcer Measurement Start: 02/24/23 08:19 Freq: Status: Active Protocol: Activity Type Activity Date Activity User E-sign Co-sign Detail Recorded Client Recorded Date Recorded By Document 02/24/23 08:19 [id number] 02/24/23 08:21 RB 02/24/23 08:19 Wound Center Nurse 1 #1- L POST LE -Combined with other wound No -Current Size (cm) - Length 0.1 -Current Size (cm) - Width 0.1 -Current Size (cm) - Depth 0.1 -Total Square Cm 0.01 -Photo Taken Yes -Tunneling No -Undermining/Tunneling No -Circular Undermining No -Exudate Amt Large -Exudate Type Serosanguineous -Wound Margin Distinct, Outline Attached -Granulation Amt Medium (34-66%) -Granulation Quality [place] -Slough/Fibrin Yes -Necrosis Amt Medium (34-66%) -Necrotic Tissue Type Adherent Slough -Structure Exposed N/A -Texture (Roberta-wound Skin Appearance) Assessed -Moisture (Roberta-wound Skin Appearance) Assessed -Color (Roberta-wound Skin Appearance) Assessed -Temperature (Roberta-wound Skin No Abnormality Appearance) (Pt Warm) -Tenderness on Palpation (Roberta-wound No Skin Appearance) -Ulcer Cleansing Wound Cleanser -Foul Odor after Cleansing No -Anesthetic Used 4% Lidocaine Solution Lower Limb Edema Present Yes Left Calf (cm) 69 Left Ankle (cm) 41.9 - Nurse 2 - General Ulcer CM Notes Start: 02/24/23 08:19 Freq: Status: Active Protocol: Activity Type Activity Date Activity User E-sign Co-sign Detail Recorded Client Recorded Date Recorded By Document 02/24/23 08:35 MW [id number] 02/24/23 08:37 MW 02/24/23 08:35 Wound Center Nurse 2 #1- L POST LE -Time 08:36 -Correct Patient Yes -Correct Side, Site, Position Yes -Correct Procedure Yes -Procedure Performed No -Post Debridement (cm) - Length 0 -Post Debridement (cm) - Width 0 -Post Debridement (cm) - Depth 0 -Total Square (Post) (cm) 0 -Wound/Ulcer Outcome Healed- Epithelialized -Bleeding Controlled with NA Pain Scale: 0-10 Numeric Is Patient Pain Free? Yes - Nurse 3 - General Ulcer D/C NN Start: 02/24/23 08:19 Freq: Status: Active Protocol: Activity Type Activity Date Activity User E-sign Co-sign Detail Recorded Client Recorded Date Recorded By Document 02/24/23 08:39 RB [id number] 02/24/23 08:40 RB 02/24/23 08:39 Wound Care Center Nurse 3 #1- L POST LE -Ulcer Cleansing Wound Cleanser -Primary Dressing Covered/Secured with Dry Gauze,Dry Gauze & Roll Gauze,Secured with Tape Left -Other alec Treatment Response Procedure Tolerated Well Pain Scale: 0-10 Numeric Is Patient Pain Free? Yes - Visit Discharge Discharge Condition Stable Ambulatory Status Ambulatory Transportation Private Auto Medication Reconcilliation completed & No provided to patient/care provider Clinical Summary of Care Provided Yes Assessment/Plan Assessment/Plan (1) Lymphedema: CODE(S): I89.0 - Lymphedema, not elsewhere classified (2) Peripheral vascular disease: CODE(S): I73.9 - Peripheral vascular disease, unspecified (3) Peripheral vascular disease of lower extremity with ulceration: CODE(S): I73.9 - Peripheral vascular disease, unspecified; L97.909 - Non-pressure chronic ulcer of unspecified part of unspecified lower leg with unspecified severity PLAN: Discharge from the wound center follow-up as needed Continue lymphedema pumps 1 hour twice a day Ozempic is pending with preauthorization continue to follow-up with For the Ozempic (4) Nonhealing nonsurgical wound: CODE(S): T14.8XXA - Other injury of unspecified body region, initial encounter (5) Non-pressure ulcer of left lower extremity: CODE(S): L97.929 - Non-pressure chronic ulcer of unspecified part of left lower leg with unspecified severity QUALIFIERS: Non-pressure ulcer stage: limited to breakdown of skin Qualified Code(s): L97.921 - Non-pressure chronic ulcer of unspecified part of left lower leg limited to breakdown of skin
== END 2023-02-26 11:54 | disposition home or self-care (01) ==
LOC: WC 07:52
PROVIDERS: PCP Internal Medicine; Referring Provider Internal Medicine; Visit Provider Nurse Practitioner
DX: Z09 Encounter for follow-up examination after completed treatment for conditions other than malignant neoplasm (principal); I73.9 Peripheral vascular disease, unspecified; Z68.43 Body mass index [BMI] 50.0-59.9, adult; I89.0 Lymphedema, not elsewhere classified; E66.9 Obesity, unspecified; Z79.82 Long term (current) use of aspirin
CPT/HCPCS: 99213; G0463